=== PATIENT | female | born 1950 | race Caucasian/White ===

== ENCOUNTER → 2019-05-04 09:28 | Outpatient (CLI) | payer MEDICARE, OTHER, SELFPAY ==
[2019-05-04 10:21] LABS: Add Manual Diff / Slide Review NO; Basophils Absolute Auto 100 /uL (0-100); Basophils Percent Auto 0.8 % (0-2); Eosinophils Absolute Auto 100 /uL (0-450); Eosinophils Percent Auto 1.6 % (2-4); Hemoglobin 14.6 g/dL (12.0-16.0); Lymphocytes Absolute Auto 2100 /uL (1100-4500); Lymphocytes Percent Auto 32.4 % (25-40); Mean Corpuscular HGB Conc 33.9 % (30-36); Mean Corpuscular Volume 85.4 fL (80-100); Monocytes Absolute Auto 800 /uL (0-900); Monocytes Percent Auto 12.5 % (3-14); Neutrophils Absolute Auto 3500 /uL (1500-7000); Neutrophils Percent Auto 52.7 % (50-75); Platelet Count 243 X10^3/uL (150-400); Red Blood Cell Count 5.03 X10^6/uL (4.0-5.2); Red Cell Distribution Width 13.4 % (11.6-14.8); White Blood Cell Count 6.6 X10^3/uL (4.5-11.0)
[2019-05-04 11:02] LABS: Alanine Aminotransferase 27 IU/L (9-52); Albumin 4.2 g/dL (3.5-5.0); Albumin Globulin Ratio 1.4 (1.0-2.8); Alkaline Phosphatase 52 U/L (38-126); Aspartate Aminotransferase 30 IU/L (14-36); BUN Creatinine Ratio 22.9 (6-22); Bilirubin Total 0.6 mg/dL (0.2-1.3); Blood Urea Nitrogen 16 mg/dL (7-17); Calcium 9.6 mg/dL (8.4-10.2); Carbon Dioxide 28 mmol/L (22-32); Chloride 103 mmol/L (98-107); Cholesterol 186 mg/dL (140-199); Estimated Glomerular Filt Rate > 60.0 mL/min (>60); Globulin 2.9 g/dL (1.7-4.1); Glucose 93 mg/dL (80-110); HDL Cholesterol 57 mg/dL (40-60); HEMOLYSIS < 15 (0-50); LDL Cholesterol Calculated 120 mg/dL (<100); Sodium 141 mmol/L (137-145); Total Protein 7.1 g/dL (6.3-8.2); Triglycerides 44 mg/dL (35-150)
[2019-05-04 11:05] LABS: C-Reactive Protein Quant < 0.5 mg/dL (<1.0)
[2019-05-04 11:18] LABS: Free T3, Triiodothyronine Free 3.58 pg/mL (2.77-5.27)
[2019-05-04 11:25] LABS: Vitamin D 25 Hydroxy (D3) 79.3 ng/mL (30.0-100.0)
[2019-05-04 11:30] LABS: Cortisol AM (Before 10AM) 8.17 ug/dL (4.46-22.7)
[2019-05-04 11:31] LABS: Thyroid Stimulating Hormone 1.31 uIU/mL (0.47-4.68)
[2019-05-04 11:44] LABS: Progesterone, Total 0.87 ng/mL
[2019-05-07 17:13] LABS: EBV EBNA Antibody IgG > 600.00 U/mL (< 18.00); EBV Virus IgG Ab > 750.00 U/mL (< 18.00); EBV Virus IgM Ab < 36.00 U/mL (< 36.00)
[2019-05-08 16:28] LABS: Dehydroepiandrosterone Sulfate 60 mcg/dL (12-133)
== END ==
PROVIDERS: Visit Provider Family Medicine
DX: B27.90 Infectious mononucleosis, unspecified without complication (principal); N95.1 Menopausal and female climacteric states; F43.9 Reaction to severe stress, unspecified; E83.41 Hypermagnesemia; E03.9 Hypothyroidism, unspecified; E04.2 Nontoxic multinodular goiter; Z13.220 Encounter for screening for lipoid disorders; E55.9 Vitamin D deficiency, unspecified; Z78.0 Asymptomatic menopausal state
CPT/HCPCS: 36415; 80053; 80061; 82306; 82533; 82542; 82627; 82672; 83735; 84144; 84439; 84443; 84481; 85025; 86140; 86664; 86665

== ENCOUNTER → 2019-06-03 10:05 | Outpatient (CLI) | payer MEDICARE, OTHER, SELFPAY ==
--- NOTE | 2019-06-03 | DI.US.S_ITS ---
LIMITED ULTRASOUND OF RIGHT BREAST AND AXILLA: 06/03/2019 CLINICAL: Palpable right breast lump. Comparison is made to exam dated: 06/03/2019 mammogram - [facility]. Color flow and real-time ultrasound of the right breast upper outer quadrant and axilla regions were performed. Mcintosh scale images of the real-time examination were reviewed. There is a 1.9 x 1.7 x 1.6 cm irregular indistinct hypoechoic mass in the upper outer right breast at 10:00 position 6 cm from the nipple which demonstrates increased internal vascularity on Doppler ultrasound. This correlates with the site of the patient's reported palpable abnormality and diagnostic mammography findings. Targeted ultrasound of the left axilla demonstrates axillary lymph nodes with preserved fatty tim and hilar vascularity on Doppler ultrasound, but with cortical thickening measuring at 3 mm. IMPRESSION: HIGHLY SUGGESTIVE OF MALIGNANCY 1) 1.9 x 1.7 x 1.6 cm irregular mass in the upper outer right breast at 10:00 position 6 cm from the nipple at the site of the patient's reported palpable abnormality. This is highly suggestive of malignancy and an ultrasound guided biopsy is recommended. 2) Borderline axillary lymphadenopathy is at low suspicion for malignancy and an ultrasound guided biopsy is recommended. These results and recommendations were discussed with the patient at the time of the exam by the [facility] Radiologist Dr. Vadim Guzmán in person. These results and recommendations were also discussed with the patient's referring provider Dr. Godfrey Bush by telephone by Dr. Bright at approximately 12:30 pm on 06/03/19. This exam was interpreted at Station ID: [id number]. Electronically Signed By: Won Bright M.D. ecl/:06/03/2019 12:51:41 copy to: Kallie Nath letter sent: Biopsy Required Ultrasound BI-RADS: 5 Highly suggestive of malignancy
--- NOTE | 2019-06-03 | DI.MG.S_ITS ---
BILATERAL DIGITAL DIAGNOSTIC MAMMOGRAM 3D/2D: 06/03/2019 CLINICAL: Baseline exam. Right breast lump. Patient reports left breast excisional biopsy in 1988. No prior exams were available for comparison. The tissue of both breasts is heterogeneously dense. This may lower the sensitivity of mammography. There is an irregular spiculated mass in the superior lateral right breast immediately underlying the triangular skin marker indictating the site of the patient's palpable concern. There are associated punctate and pleomorphic calcifiations measuring approximately 3.0 cm in greatest extent (greatest anteroposteriorly). There is an approximately 1.0 cm oval circumscribed mass in the lower outer left breast near 4:00-5:00 position middle depth. There is an asymmetry with possible architectual distortion in the lateral left breast near 2:00 through 4:00 positions middle depth, near the linear scar marker from patient's reported prior left excisional biopsy. IMPRESSION: INCOMPLETE: NEEDS ADDITIONAL IMAGING EVALUATION 1) There is an irregular spiculated mass in the superior lateral right breast immediately underlying the triangular skin marker indictating the site of the patient's palpable concern. A targeted ultrasound is recommended for further evaluation. 2) There is an approximately 1.0 cm oval circumscribed mass in the lower outer left breast near 4:00-5:00 position middle depth. A targeted ultrasound is recommended for further evaluation. 3) There is an asymmetry with possible architectual distortion in the lateral left breast near 2:00 through 4:00 positions middle depth, near the linear scar marker from patient's reported prior left excisional biopsy. A targeted ultrasound is recommended for further evaluation. This exam was interpreted at Station ID: [id number]. NOTE: For mammograms, a report in lay terms will be sent to the patient. Approximately 15% of breast malignancies will not be visualized mammographically. In the management of a palpable breast mass, a negative mammogram must not discourage biopsy of a clinically suspicious lesion. Electronically Signed By: Won Bright M.D. ecl/:06/03/2019 11:40:40 ACR BI-RADS Category 0: Incomplete [id number]
--- NOTE | 2019-06-03 11:09 | DI.US.S_ITS ---
LIMITED ULTRASOUND OF LEFT BREAST AND AXILLA: 06/03/2019 CLINICAL: Patient returns today to evaluate mammographic findings in the left breast. Comparison is made to exams dated: 06/03/2019 mammogram and 06/03/2019 [facility]. Color flow and real-time ultrasound of the left breast 4-5 o'clock, and axilla regions were performed. Mcintosh scale images of the real-time examination were reviewed. There is a 1.0 x 1.0 x 0.6 cm peripherally hypoechoic and centrally hyperechoic intramammary lymph node demonstrating borderline cortical thickening of 3 mm in the left breast at 4:30 position 5 cm from the nipple. This lymph node demonstrates a preserved fatty hilum with hilar vascularity. This correlates with the mass described on comparison diagnostic mammogram of 06/03/19. There is no suspicious mass or abnormality on targeted ultrasound to correlate with the asymmetry with possible architectual distortion in the lateral left breast near 2:00 through 4:00 positions middle depth described on comparison diagnostic mammogram of 06/03/19. There is a 0.8 x 0.7 x 0.7 cm oval circumscribed anechoic cyst with increased through transmission/posterior acoustic enhancement, and no vascularity on Doppler ultrasound located in the left breast at 4:30 retroareolar position central to the nipple. There is a 2.3 x 2.1 x 0.9 cm peripherally hypoechoic and centrally hyperechoic left axillary lymph node demonstrating focal cortical thickening of 7 mm in the left axilla. This lymph node demonstrates a preserved fatty hilum with hilar vascularity. IMPRESSION: SUSPICIOUS OF MALIGNANCY 1. 2.3 x 2.1 x 0.9 cm left axillary lymph node demonstrating focal cortical thickening of 7 mm in the left axilla. This is at moderate suspicion for malignancy and an ultrasound guided biopsy is recommended. 2. 1.0 x 1.0 x 0.6 cm intramammary lymph node demonstrating borderline cortical thickening in the left breast at 4:30 position 5 cm from the nipple. This is at low suspicion for malignancy and an ultrasound guided biopsy is recommended. 3. No suspicious mass or abnormality on targeted ultrasound to correlate with the asymmetry with possible architectual distortion in the lateral left breast near 2:00 through 4:00 positions middle depth described on comparison diagnostic mammogram of 06/03/19. This area likely represents postsurgical scarring from patient's prior reported excisional biopsy. A follow-up MRI is recommended, particularly given the highly suspicious mass identified in the right breast on right breast targeted ultrasound performed concurrently. 4. 0.8 x 0.7 x 0.7 cm benign simple cyst in the left breast at 4:30 retroareolar position central to the nipple. These results and recommendations were discussed with the patient at the time of the exam by the [facility] Radiologist Dr. Vadim Guzmán in person. These results and recommendations were also discussed with the patient's referring provider Dr. Godfrey Bush by telephone by Dr. Bright at approximately 12:30 pm on 06/03/19. This exam was interpreted at Station ID: [id number]. Electronically Signed By: Won Bright M.D. ecl/:06/03/2019 13:04:01 copy to: Kallie Nath letter sent: Biopsy Required Ultrasound BI-RADS: 4b Moderate suspicion of malignancy
== END ==
PROVIDERS: Visit Provider Specialist
DX: R92.8 Other abnormal and inconclusive findings on diagnostic imaging of breast (principal); N63.11 Unspecified lump in the right breast, upper outer quadrant; N60.02 Solitary cyst of left breast; N64.89 Other specified disorders of breast; I89.9 Noninfective disorder of lymphatic vessels and lymph nodes, unspecified; Z80.3 Family history of malignant neoplasm of breast
CPT/HCPCS: 76642; 77066; 99214; G0279

== ENCOUNTER 2019-06-08 13:59 | Day surgery (SDC) | payer MEDICARE, OTHER, SELFPAY ==
[2019-06-04 14:54] VITALS: BMI 31.2
[2019-06-08] VITALS (9 sets, daily range): BP systolic 122–172; BP diastolic 52–71; PULSE 52–67; RESP 12–20; TEMP 36.4–37.3; O2SAT 95–98; BMI 30.4
--- NOTE | 2019-06-08 | PATH_ITS ---
[facility] Accession Number: [id number] . 01 Material submitted: . breast - RIGHT BREAST . 01 Clinical history: . MASS: LONG STITCH IS SUPERIOR, SHORT STITCH IS MEDIAL . 01 Diagnosis: A. Right Breast, Partial Mastectomy: Invasive (ductal) carcinoma, grade 2 of 3 ([place] combined histologic grade, total score 6/9) with the following features: 1. Tumor size (invasive component): 2.6 cm, by gross measurement (26 x 22 x 13 mm). 2. Tumor grade: a. Tubular differentiation: Moderate degree. (2/3) b. Nuclear pleomorphism: High. (3/3) c. Mitotic rate: Low. (1/3) 3. Ductal carcinoma in situ (DCIS): Present, with the following features: a. Nuclear grade: Low to intermediate. b. Necrosis: Not identified. c. Extent: Present on more than one slide corresponsding to tissue slices 6 through 12 contiguously, spanning approximately 26 mm. 4. Calcifications: Present, in association with invasive carcinoma, DCIS, atypical lobular hyperplasia, and benign breast tissue. 5. Lymphatic space invasion: Not definitively identified. 6. Resection margins: a. Invasive carcinoma: Negative; 6 mm from the closest lateral margin and more than 10 mm from the remaining margins. b. DCIS: Negative; more than 10 mm from all margins. 7. Prognostic markers (performed on this specimen): a. Estrogen receptor (SP1): Positive (95% tumor cells, Strong intensity). b. Progesterone receptor (1E2): Positive (85% tumor cells, Strong intensity). c. Her2 (4B5): Equivocal for overexpression (2+); FISH studies for Her2 gene amplification are pending and results will be reported in an addendum. 8. Additional findings: a. Skin is present and unremarkable. b. Others: Background breast parenchyma with atypical lobular hyperplasia, focal atypical ductal hyperplasia, and focal flat epithelial atypia; fibrocystic changes include focal usual ductal hyperplasia, apocrine metaplasia, and sclerosing adenosis. 9. Pathologic stage: pT2 pNX MRV 06/15/2019 0850 Local . 01 Electronically signed: . Era Martinez MD, Pathologist NPI- [id number] . 01 Gross description: . Received: In formalin, labeled right breast mass, long stitch is superior, short stitch is medial. Specimen: Right partial mastectomy. Weight: 94 grams. Measurement: 3.7 cm anterior to posterior, 5.3 cm medial to lateral, and 6.2 cm superior to inferior. Skin ellipse: Present, 6.2 x 2.7 cm. Wire: Absent. Margins: Oriented by surgeon with long superior suture and short medial suture and inked as follows: posterior=black; anterior=purple; superior=blue; inferior=green; medial=yellow; lateral=orange. Sliced: Superior to inferior into 15 slices. Lesions: One definitive lesion is identified. Description: Firm, white, with a gritty cu surface. Size: 2.6 x 2.2 x 1.3 cm. Slices involved: Slices 6 through 13. Biopsy site: Absent. Distance to margins: 0.9 cm from the skin surface, 1.3 cm from the anterior margin, 1.5 cm from the posterior margin, 2.1 cm from the superior margin, 0.7 cm from the inferior margin, 1.4 cm from the medial margin, and 1.4 cm from the lateral margin. Other: The remaining cut surfaces consist of yellow lobulated fibrofatty tissue. No additional discrete masses or lesions are grossly identified. The skin surface is grossly unremarkable. Fixation time: The specimen was placed in formalin 06/08/2019 with no time given. The approximate total fixation time is calculated to be 56 hours 30 minutes. Sections: A1-A2: Slice 1, superior end of specimen, perpendicular, entirely submitted. A3: Slice 2, guest service representative with fibrous tissue. A4-A5: Slice 3, guest service representative with fibrous tissue. A6: Slice 4, guest service representative with fibrous tissue. A7-A10: Slice 5, tissue superior to mass, no identifiable mass within this slice, slice entirely submitted. A11-A12: Slice 6, guest service representative with mass and fibrous tissue. A13, A14: Slice 7, guest service representative with mass and fibrous tissue. A15-A16: Slice 8, guest service representative with mass and fibrous tissue (grossly verified by Dr. Martinez as involved by tumor). A17-A19: Slice 9, guest service representative mass and fibrous tissue. A20-A22: Slice 10, guest service representative mass and fibrous tissue. A23-A25: Slice 11, guest service representative with mass and fibrous tissue. A26-A30: Slice 12, guest service representative mass and fibrous tissue. A31, A32: Slice 13, guest service representative with mass and fibrous tissue. A33-A36: Slice 14, tissue inferior to mass, guest service representative with fibrous tissue, no identifiable mass within this slice. A37: Slice 15, guest service representative inferior end of specimen, perpendicular, fibrous tissue is present. ([id number]) /MRV 06/15/2019 0850 Local . 01 Microscopic: . The invasive carcinoma is located within the breast parenchyma in the subcutaneous adipose tissue, without skin dermis involvement. There is no evidence of Paget disease. Atypical lobular hyperplasia is scattered and involves most the specimen (discontinuously involving 12 out of 15 slices). Perineural invasion is present. D2-40 immunostain is performed on block A13 in order to assess for lymphovascular space invasion, with appropriately staining external controls. The area of interest does not demonstrate D2-40 immunoreactivity, in support of no definitive evidence of lymphovascular invasion. . Predictive marker immunohistochemical studies are performed on block A23 with the invasive carcinoma showing the following results: . Estrogen receptor (SP1): Positive (95% tumor cells, Strong intensity). Progesterone receptor (1E2): Positive (85% tumor cells, Strong intensity). Her2 (4B5): Equivocal for overexpression (2+). . Internal controls for ER and [place] are positive. Fixation time is estimated about 56 hours and 30 minutes. The scoring criteria for breast biomarkers by immunohistochemistry is based on the ASCO/CAP guidelines (George AC et al, J Clin Oncol: 2017Feb 25;36(20):4000-0828 and Martina LÓPEZ et al, Arch Pathol Lab Med: 2009;134(6):907-22). Deparaffinized sections of formalin fixed tissue (along with appropriate positive controls) are incubated with the above antibody(s). Using the automated [place] stainer, tissue is incubated with the designated antibody which is then localized by a non-biotin, dual polymer detection system. The external controls are reviewed for appropriate reactivity and found to be adequate. Results on the target cell population are indicated above. These tests have not been validated on decalcified tissue. This test was developed and its performance characteristics determined by [employer]. It has not been cleared or approved by the U.S. Food and Drug Administration. The FDA has determined that such clearance or approval is not necessary. This test is used for clinical purposes. It should not be regarded as investigational or for research. . 01 Pathologist provided ICD-10: C50.911 . 01 CPT . 109215, M64898, 325259, 988930, 800883 Performed at: 01 [facility] [address] [place] [address], [place], [place] [id number] MD Jacinto Mar MD Phone: [phone]
[2019-06-08] MEDS: LACTATED RINGERS 1,000 ML 42 ML IV (14:43)
--- NOTE | 2019-06-08 15:42 | PM.PREOP ---
Pre-operative Note Interval Note History & Physical reviewed/Exam performed by Physician: Yes Changes to H&P: No
[2019-06-08] MEDS: CEFAZOLIN 2 GM/100 ML FROZ.PIGGY IV (16:10)
--- NOTE | 2019-06-08 16:29 | SUR.OPER ---
Supine on padded OR bed, head on pillow, arms secured on padded arm boards at <90 degrees abduction, legs uncrossed, safety belt at thigh, tape over blanket over lower legs.
[2019-06-08] MEDS: BUPIVACAINE 0.5% W/ EPI (PF) VIAL 30 ML INJ (16:36)
[2019-06-08] MEDS: OXYCODONE IR 5 MG TABLET PO (17:53)
--- NOTE | 2019-06-08 18:01 | PM.OP.1 ---
Operative Date/Time/Diagnoses Date of procedure: 06/08/19 Time of procedure: 17:15 Pre-op diagnosis: Right breast mass highly suspicious for malignancy Post-op diagnosis: same Procedure & Clinicians Procedure: Lumpectomy Same procedure as scheduled: Yes Indications: Patient is a woman who had an abnormal mammogram. She did not desire a minimally invasive procedure nor a axillary node procedure. She wanted a diagnostic procedure to remove the lump and tell her the pathology report. She was taken to the operating room. She asked that I a do a generous biopsy to try to get clear margins and if I needed to make a bigger incision I should do so. Surgeon: Godfrey Bush Click Yes if Unassisted: Yes Anesthesia Type: General Operative Notes Findings: Mass was much larger than I anticipated on physical exam once the skin was released overlying it. The patient had dimpling of the skin over the mass and thus I removed this that segment of skin because of concerned that it might be involved. Closure Type: primary Specimen(s): other (Mass) Prosthetic devices, grafts, tissues, transplants, or devices: None Estimated Blood Loss (mL): 40 Blood products transfused: none Procedure in detail: The patient is placed supine on the operating room table and underwent general LMA anesthesia. She was prepped and draped in the usual fashion. Excess occluded the inflamed area under her right breast from the operative field. She appears to have a yeast infection. A curvilinear incision was made in a crescent shape around this mass. The incisions were carried into the subcu and then using palpation I removed the mass and a generous amount of tissue around it. The mass was much larger than anticipated on palpation. The dissection was carried almost to the chest wall. The mass was labeled and submitted with the ellipse of skin intact. Hemostasis was achieved. The space was closed with interrupted 3 0 Vicryl in 2 layers. The skin was closed running 4 0 Vicryl subcuticular stitch and Steri-Strips. Dressing was applied and patient tolerated the procedure well. Complications: none Post-operative Condition: stable Disposition: PACU
[2019-06-08] MEDS: fentaNYL 100 MCG/2 ML INJ 50 MCG IV (18:03)
== END 2019-06-08 18:48 | disposition home or self-care (01) ==
PROVIDERS: PCP Family Medicine; Visit Provider Specialist
PROC: (CPT 19301; principal; 2019-06-08 15:15)
DX: C50.911 Malignant neoplasm of unspecified site of right female breast (principal); Z17.0 Estrogen receptor positive status [ER+]
CPT/HCPCS: 19301; J0690; J1100; J2250; J2405; J2704; J3010

== ENCOUNTER → 2020-09-12 15:00 | Outpatient (CLI) | payer MEDICARE, OTHER, SELFPAY ==
[2020-09-12 16:33] LABS: Add Manual Diff / Slide Review NO; Basophils Absolute Auto 0 /uL (0-100); Basophils Percent Auto 0.5 % (0-2); Eosinophils Absolute Auto 100 /uL (0-450); Eosinophils Percent Auto 1.6 % (2-4); Hematocrit 42.8 % (36-46); Lymphocytes Absolute Auto 2800 /uL (1100-4500); Lymphocytes Percent Auto 34.5 % (25-40); Mean Corpuscular HGB Conc 32.7 % (30-36); Mean Corpuscular Hemoglobin 28.4 PG (26-34); Mean Corpuscular Volume 86.7 fL (80-100); Monocytes Absolute Auto 900 /uL (0-900); Monocytes Percent Auto 10.5 % (3-14); Neutrophils Absolute Auto 4300 /uL (1500-7000); Neutrophils Percent Auto 52.9 % (50-75); Platelet Count 268 X10^3/uL (150-400); Red Blood Cell Count 4.94 X10^6/uL (4.0-5.2); Red Cell Distribution Width 13.7 % (11.6-14.8); White Blood Cell Count 8.1 X10^3/uL (4.5-11.0)
[2020-09-12 16:55] LABS: Hemoglobin A1C% w Est Avg Glu 5.3 % (4.0-6.0)
[2020-09-12 17:28] LABS: Alanine Aminotransferase 17 IU/L (<35); Albumin 4.4 g/dL (3.5-5.0); Albumin Globulin Ratio 1.4 (1.0-2.8); Alkaline Phosphatase 56 U/L (38-126); Aspartate Aminotransferase 30 IU/L (14-36); BUN Creatinine Ratio 32.8 (6-22); Bilirubin Total 0.4 mg/dL (0.2-1.3); Blood Urea Nitrogen 21 mg/dL (7-17); Carbon Dioxide 29 mmol/L (22-32); Chloride 103 mmol/L (98-107); Estimated Glomerular Filt Rate > 60.0 mL/min (>60); Globulin 3.2 g/dL (1.7-4.1); Glucose 87 mg/dL (80-110); HEMOLYSIS < 15 (0-50); Lactate Dehydrogenase 419 U/L (313-618); Potassium 3.9 mmol/L (3.4-5.1); Sodium 136 mmol/L (137-145); Total Protein 7.6 g/dL (6.3-8.2)
[2020-09-12 17:36] LABS: High Sensitivity CRP - Cardiac 1.9 mg/L (1.0-3.0)
[2020-09-12 17:37] LABS: Erythrocyte Sedimentation Rate 11 MM/HR (0-20)
[2020-09-12 17:45] LABS: Vitamin D 25 Hydroxy (D3) 66.6 ng/mL (30.0-100.0)
[2020-09-12 17:51] LABS: Free T3, Triiodothyronine Free 3.66 pg/mL (2.77-5.27)
[2020-09-12 17:59] LABS: Cancer Antigen 125 6.8 U/mL (0-35)
[2020-09-12 18:01] LABS: Estradiol, Total 27.2 pg/mL
[2020-09-12 18:03] LABS: Ferritin 145 ng/mL (11-264)
[2020-09-12 18:05] LABS: Thyroid Stimulating Hormone 0.881 uIU/mL (0.47-4.68)
[2020-09-13 04:47] LABS: Cancer Antigen 27.29 54.8 U/mL (0.0-38.6); Homocysteine 10.3 umol/L (0.0-17.2)
[2020-09-13 05:36] LABS: CA 15-3 39.9 U/mL (0.0-25.0); Cancer (Carbohydrate) Ag 19-9 9 U/mL (0-35); Dehydroepiandrosterone Sulfate 0.5 ug/dL (20.4-186.6)
[2020-09-13 08:12] LABS: Fibrinogen Activity 401 mg/dL (193-507)
[2020-09-14 15:28] LABS: Thyroid Stimulating Immunoglob < 0.10 IU/L (0.00-0.55)
== END ==
PROVIDERS: PCP Preventive Medicine Public Health & General Preventive Medicine; Referring Provider Preventive Medicine Public Health & General Preventive Medicine; Visit Provider Preventive Medicine Public Health & General Preventive Medicine
DX: C50.011 Malignant neoplasm of nipple and areola, right female breast (principal); R73.9 Hyperglycemia, unspecified; E55.9 Vitamin D deficiency, unspecified; I97.3 Postprocedural hypertension; E03.9 Hypothyroidism, unspecified; M17.10 Unilateral primary osteoarthritis, unspecified knee; E66.9 Obesity, unspecified; H04.123 Dry eye syndrome of bilateral lacrimal glands; L40.9 Psoriasis, unspecified; M54.5 Low back pain; H25.10 Age-related nuclear cataract, unspecified eye
CPT/HCPCS: 36415; 80053; 82306; 82542; 82627; 82670; 82728; 83036; 83090; 83615; 84134; 84270; 84403; 84439; 84443; 84445; 84481; 85025; 85384; 85651; 86140; 86300; 86301; 86304

== ENCOUNTER → 2020-10-08 10:53 | Outpatient (CLI) | payer MEDICARE, OTHER, SELFPAY ==
[2020-10-13 04:52] LABS: Testosterone % Fr + Wkly bound 5.1 % (3.0-18.0); Testosterone Fr+Wkly bound 1.2 ng/dL (0.0-9.5); Testosterone, Total 24.5 ng/dL (7.0-40.0)
== END ==
PROVIDERS: PCP Preventive Medicine Public Health & General Preventive Medicine; Referring Provider Preventive Medicine Public Health & General Preventive Medicine; Visit Provider Preventive Medicine Public Health & General Preventive Medicine
DX: C50.011 Malignant neoplasm of nipple and areola, right female breast (principal); I97.3 Postprocedural hypertension; M17.10 Unilateral primary osteoarthritis, unspecified knee; E66.9 Obesity, unspecified; H04.123 Dry eye syndrome of bilateral lacrimal glands; L40.9 Psoriasis, unspecified; M54.5 Low back pain; H25.10 Age-related nuclear cataract, unspecified eye
CPT/HCPCS: 36415; 82627; 84403

== ENCOUNTER → 2022-04-02 09:39 | Outpatient (CLI) | payer MEDICARE, OTHER, SELFPAY ==
--- NOTE | 2022-04-02 09:42 | DI.US.S_ITS ---
PROCEDURE: US THYROID INDICATIONS: nontoxic single thyroid nodule TECHNIQUE: Real-time scanning was performed of the thyroid gland, with image documentation. COMPARISON: None. FINDINGS: Right: Thyroid lobe measures 5.0 x 2.0 x 2.2 cm, and is homogeneous in echotexture. Left: Thyroid lobe measures 6.0 x 2.7 x 2.9 cm, and is homogenous in echotexture. Isthmus: 0.2 cm thick. Right lateral portion of the isthmus appears thin or atrophic. Nodule number: 1 Location: Right superior lateral Size: 1.6 x 1.1 x 1.0 cm. Composition: Solid Echogenicity: Isoechoic Shape: wider than tall. Margins: Smooth Echogenic foci: None Total points: 3 ACR TI-RADS category: Mildly suspicious Nodule number: 2 Location: Right medial mid thyroid Size: 1.0 x 0.6 x 0.7 cm Composition: Predominantly solid Echogenicity: Hypoechoic Shape: wider than tall. Margins: Smooth Echogenic foci: None Total points: 4 ACR TI-RADS category: Moderately suspicious Nodule number: 3 Location: Left inferior Size: 4.3 x 2.9 x 3.9 cm Composition: Predominantly solid Echogenicity: Mixed echogenicity Shape: Wider than tall Margins: Mildly lobulated Echogenic foci: Punctate Total points: 9 ACR TI-RADS category: Highly suspicious IMPRESSION: Multiple thyroid nodules as described above. Recommend fine-needle aspiration of the 4.3 cm nodule in the left thyroid and sonographic follow-up of the remaining nodules. ACR TI-RADS definitions and recommendations: TI-RADS 1 (benign): 0 points. FNA not needed. TI-RADS 2 (not suspicious): 2 points. FNA not needed. TI-RADS 3 (mildly suspicious): 3 points. * FNA if 2.5 cm or larger, follow up if 1.5 cm or larger (at 1, 3, and 5 years). TI-RADS 4 (moderately suspicious): 4-6 points. * FNA if 1.5 cm or larger, follow up if 1 cm or larger (at 1, 2, 3, and 5 years). TI-RADS 5 (highly suspicious): 7 points or more. * FNA if 1 cm or larger, follow up if 0.5 cm or larger (every year for 5 years). Dictated by: Manuelito Tena M.D. on 04/02/2022 at 12:53 Approved by: Manuelito Tena M.D. on 04/02/2022 at 13:00
--- NOTE | 2022-04-02 09:42 | DI.US.S_ITS ---
PROCEDURE: US CAROTID DOPPLER BI INDICATIONS: BRUIT TECHNIQUE: Color and pulse Doppler interrogation was performed of both carotid systems, with image documentation and velocity measurements. COMPARISON: None. FINDINGS: Stenosis calculations are based on SRU (Society of Radiologists in Ultrasound) criteria. Right side: Brachial blood pressure: 182/81 mm Hg. Common carotid artery peak systolic velocity: 70 cm/sec. Internal carotid artery peak systolic velocity: 99 cm/sec. Internal carotid artery end diastolic velocity: 24 cm/sec. External carotid artery peak systolic velocity: 77 cm/sec. ICA/CCA peak systolic ratio: 1.4 . Mcintosh scale imaging description: No significant plaque Percent internal carotid artery stenosis: Less than 50%. Vertebral artery: Flow direction is antegrade. Left side: Brachial blood pressure: 186/80 mm Hg. Common carotid artery peak systolic velocity: 88 cm/sec. Internal carotid artery peak systolic velocity: 81 cm/sec. Internal carotid artery end diastolic velocity: 28 cm/sec. External carotid artery peak systolic velocity: 74 cm/sec. ICA/CCA peak systolic ratio: 0.9 . Mcintosh scale imaging description: No significant plaque Percent internal carotid artery stenosis: No significant plaque . Vertebral artery: Flow direction is antegrade. IMPRESSION: No significant stenosis. Dictated by: Kael Razo M.D. on 04/02/2022 at 14:53 Approved by: Kael Razo M.D. on 04/02/2022 at 15:00
--- NOTE | 2022-04-02 09:45 | DI.RAD.S_ITS ---
PROCEDURE: XR HIP W PEL IF DONE VIOLA MIN 4V INDICATIONS: BILATERAL HIP PAIN TECHNIQUE: AP pelvis with lateral view(s) of the right and left hip(s). COMPARISON: None. FINDINGS: Bones: Degenerative changes of both hips consistent with osteoarthritis. No fractures or dislocations. Pelvic ring appears intact. No suspicious bony lesions. A well corticated ossicle is noted adjacent to the left greater trochanter. Soft tissues: The visualized bowel gas pattern is normal. No suspicious soft tissue calcifications. IMPRESSION: Degenerative changes of both hips consistent with mild osteoarthritis. Dictated by: Kael Razo M.D. on 04/02/2022 at 15:10 Approved by: Kael Razo M.D. on 04/02/2022 at 15:12
--- NOTE | 2022-04-02 09:45 | DI.RAD.S_ITS ---
PROCEDURE: XR ANKLE LT MIN 3V INDICATIONS: ANKLE PAIN TECHNIQUE: Three views of the ankle were acquired. COMPARISON: None. FINDINGS: Bones: No acute fracture or dislocation. Mild to moderate tibiotalar degenerative changes place plantar enthesopathy. Soft tissues: Soft tissue swelling around the ankle. There might be a joint effusion. IMPRESSION: [id number] tibiotalar degenerative changes. Possible tibiotalar joint effusion. There is also some soft tissue swelling around the ankle. Consider further evaluation with MRI if there is high concern for internal derangement. Dictated by: Evgeny Noriega M.D. on 04/02/2022 at 12:32 Approved by: Evgeny Noriega M.D. on 04/02/2022 at 12:34
--- NOTE | 2022-04-02 09:45 | DI.RAD.S_ITS ---
PROCEDURE: XR LUMBAR SPINE 2-3V INDICATIONS: BACK PAIN TECHNIQUE: 3 views of the lumbar spine were acquired. COMPARISON: None. FINDINGS: Bones: No fracture or subluxation. There is facet arthrosis in the lumbar spine especially L3-4 through L5-S1. Multilevel disc space narrowing consistent with disc disease with anterior osteophytes. Soft tissues: The aorta has atherosclerotic calcifications. Overlying bowel gas pattern is normal. No suspicious soft tissue calcifications. IMPRESSION: 1. Multilevel disc space narrowing consistent with disc disease. 2. Facet arthrosis of the lumbar spine. Dictated by: Kael Razo M.D. on 04/02/2022 at 15:12 Approved by: Kael Razo M.D. on 04/02/2022 at 15:15
--- NOTE | 2022-04-02 09:45 | DI.RAD.S_ITS ---
PROCEDURE: XR ANKLE RT MIN 3V INDICATIONS: ANKLE PAIN TECHNIQUE: Three views of the ankle were acquired. COMPARISON: None. FINDINGS: Bones: Mild degenerative changes at the tibiotalar joint. Achilles insertional, and plantar enthesopathy. Partially visualize midfoot degenerative changes are also present. Soft tissues: No tibiotalar joint effusion. Achilles tendon appears normal. IMPRESSION: Mild ankle degenerative changes. Achilles insertional and plantar enthesopathy. No acute radiographic abnormality. If there is high concern for internal derangement, consider MRI evaluation. Dictated by: Evgeny Noriega M.D. on 04/02/2022 at 12:34 Approved by: Evgeny Noriega M.D. on 04/02/2022 at 12:35
--- NOTE | 2022-04-02 09:45 | DI.RAD.S_ITS ---
PROCEDURE: XR KNEE RT 3V INDICATIONS: KNEE PAIN TECHNIQUE: 3 views of the knee were acquired. COMPARISON: [facility], CR, XR KNEE ARTHRITIC SERIES BI, 06/10/2019, 10:20. FINDINGS: Bones: No acute fractures or dislocations. No suspicious bony lesions. Generalized osteopenia. Moderate to severe joint space narrowing is seen at the medial femorotibial compartment with marginal osteophyte formation. Moderate narrowing of the anterior compartment joint space is seen. Tricompartmental marginal osteophytes. Soft tissues: Small joint effusion. No suspicious soft tissue calcifications. 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 Dictated by: Manuelito Tena M.D. on 04/02/2022 at 13:06 Approved by: Manuelito Tena M.D. on 04/02/2022 at 13:07
--- NOTE | 2022-04-02 09:45 | DI.RAD.S_ITS ---
PROCEDURE: XR KNEE LT 3V INDICATIONS: KNEE PAIN TECHNIQUE: 3 views of the knee were acquired. COMPARISON: [facility], CR, XR KNEE ARTHRITIC SERIES BI, 06/10/2019, 10:20. FINDINGS: Bones: No acute fractures or dislocations. No suspicious bony lesions. Moderate to severe joint space narrowing is seen at the medial femorotibial compartment with marginal osteophyte formation and remodeling of the articular surfaces. Moderate joint space narrowing of the patellofemoral compartment. Tricompartmental marginal osteophytes. Generalized osteopenia. Soft tissues: Small joint effusion. No suspicious soft tissue calcifications. IMPRESSION: Tricompartmental osteoarthrosis is most notable at the medial femorotibial compartment, not significantly changed when compared to the exam from 06/10/2019. Dictated by: Manuelito Tena M.D. on 04/02/2022 at 13:04 Approved by: Manuelito Tena M.D. on 04/02/2022 at 13:05
== END ==
PROVIDERS: PCP Family Medicine; Referring Provider Family Medicine; Visit Provider Family Medicine
DX: I35.0 Nonrheumatic aortic (valve) stenosis (principal); I70.0 Atherosclerosis of aorta; R09.89 Other specified symptoms and signs involving the circulatory and respiratory systems; R03.0 Elevated blood-pressure reading, without diagnosis of hypertension; E04.2 Nontoxic multinodular goiter; M47.816 Spondylosis without myelopathy or radiculopathy, lumbar region; M47.817 Spondylosis without myelopathy or radiculopathy, lumbosacral region; M17.0 Bilateral primary osteoarthritis of knee; M25.571 Pain in right ankle and joints of right foot; M77.51 Other enthesopathy of right foot and ankle; M79.89 Other specified soft tissue disorders; M25.551 Pain in right hip; M25.552 Pain in left hip; M79.609 Pain in unspecified limb
CPT/HCPCS: 72100; 73522; 73562; 73610; 76536; 93880

== ENCOUNTER → 2022-04-03 09:56 | Outpatient (CLI) | payer MEDICARE, OTHER, SELFPAY ==
[2022-04-03 11:07] LABS: Hemoglobin A1C% w Est Avg Glu 5.3 % (4.0-6.0)
[2022-04-03 11:08] LABS: Add Manual Diff / Slide Review NO; Basophils Absolute Auto 0 /uL (0-100); Basophils Percent Auto 0.5 % (0-2); Eosinophils Absolute Auto 100 /uL (0-450); Eosinophils Percent Auto 2.3 % (2-4); Hemoglobin 13.8 g/dL (12.0-16.0); Lymphocytes Absolute Auto 2100 /uL (1100-4500); Lymphocytes Percent Auto 34.1 % (25-40); Mean Corpuscular HGB Conc 34.5 % (30-36); Mean Corpuscular Hemoglobin 29.1 PG (26-34); Mean Corpuscular Volume 84.4 fL (80-100); Monocytes Absolute Auto 700 /uL (0-900); Neutrophils Absolute Auto 3100 /uL (1500-7000); Neutrophils Percent Auto 51.1 % (50-75); Platelet Count 245 X10^3/uL (150-400); Red Blood Cell Count 4.74 X10^6/uL (4.0-5.2); Red Cell Distribution Width 13.7 % (11.6-14.8); White Blood Cell Count 6.1 X10^3/uL (4.5-11.0)
[2022-04-03 11:25] LABS: Alanine Aminotransferase 17 IU/L (<35); Albumin 3.9 g/dL (3.5-5.0); Albumin Globulin Ratio 1.4 (1.0-2.8); Alkaline Phosphatase 54 U/L (38-126); Aspartate Aminotransferase 24 IU/L (14-36); BUN Creatinine Ratio 20.6 (6-22); Bilirubin Total 0.6 mg/dL (0.2-1.3); Blood Urea Nitrogen 14 mg/dL (7-17); Carbon Dioxide 28 mmol/L (22-32); Chloride 104 mmol/L (98-107); Cholesterol 221 mg/dL (140-199); Creatine Kinase 36 U/L (30-135); Estimated Glomerular Filt Rate > 60 mL/min (>60); Globulin 2.8 g/dL (1.7-4.1); Glucose 93 mg/dL (80-110); HDL Cholesterol 55 mg/dL (40-60); HEMOLYSIS < 15 (0-50); LDL Cholesterol Calculated 155 mg/dL (<100); Magnesium 2.1 mg/dL (1.6-2.3); Potassium 4.3 mmol/L (3.4-5.1); Sodium 138 mmol/L (137-145); Total Protein 6.7 g/dL (6.3-8.2); Triglycerides 54 mg/dL (35-150)
[2022-04-03 11:45] LABS: Free T3, Triiodothyronine Free 3.32 pg/mL (2.77-5.27); Free T4, Direct Thyroxine 1.27 ng/dL (0.78-2.19)
[2022-04-03 11:59] LABS: Thyroid Stimulating Hormone 0.847 uIU/mL (0.47-4.68)
[2022-04-05 18:24] LABS: Vitamin D 25 Hydroxy (D3) 86.9 ng/mL (30.0-100.0)
== END ==
PROVIDERS: PCP Family Medicine; Referring Provider Family Medicine; Visit Provider Family Medicine
DX: I10 Essential (primary) hypertension (principal); I35.0 Nonrheumatic aortic (valve) stenosis; E55.9 Vitamin D deficiency, unspecified; R03.0 Elevated blood-pressure reading, without diagnosis of hypertension; E04.1 Nontoxic single thyroid nodule; R09.89 Other specified symptoms and signs involving the circulatory and respiratory systems; I73.9 Peripheral vascular disease, unspecified; E83.41 Hypermagnesemia; E78.5 Hyperlipidemia, unspecified; Z13.1 Encounter for screening for diabetes mellitus; G60.9 Hereditary and idiopathic neuropathy, unspecified; M79.662 Pain in left lower leg
CPT/HCPCS: 36415; 80053; 80061; 82306; 82542; 82550; 83036; 83735; 84439; 84443; 84481; 85025

== ENCOUNTER → 2022-06-20 09:17 | Outpatient (CLI) | payer MEDICARE, OTHER, SELFPAY ==
--- NOTE | 2022-06-20 09:19 | DI.ECHO.S_ITS ---
[facility] +---------+ : : [address] : : : : [place] : : : : [id number] : : : : Phone: [phone]---------+ Echocardiogram Report + + :Name: APRIL MONGE V Study Date: 06/20/2022 Height: 64 in : :[facility] ReadingLocation: Weight: 176 lb : : Gender: Female BSA: 1.9 m2 : :: 1950 Age: 72 yrs BP: 147/84 mmHg: :Reason For Study: AORTIC STENOSIS : :Ordering Physician: FABIANO, : :IAIN Performed By: Rochelle Ro : :Referring: IAIN MARIO : + + Interpretation Summary The patient was in sinus bradycardia with heart rates between 49-55 bpm during the exam. Hypertensive during exam The left ventricle is normal in size. Proximal septal thickening is noted. There is mild concentric left ventricular hypertrophy. The ejection fraction is estimated to be 60-65%. Diastolic parameters suggest a relaxation abnormality of the left ventricle, consistent with probable normal filling pressures. The left atrium is mildly dilated. There is mild aortic valve sclerosis. There is mild aortic regurgitation. There is no aortic valve stenosis. There is mild tricuspid regurgitation. The right ventricular systolic pressure is estimated to be at least 29 mmHg based on an estimated right atrial pressure of 8 mm Hg. No prior study for comparison. Procedure: A two-dimensional transthoracic echocardiogram with color flow and Doppler was performed. The study quality was technically adequate. There is no prior echocardiogram noted for this patient. The patient was in sinus bradycardia with heart rates between 49-55 bpm during the exam. Hypertensive during exam. Left Ventricle: The left ventricle is normal in size. Proximal septal thickening is noted. There is mild concentric left ventricular hypertrophy. The ejection fraction is estimated to be 60-65%. Diastolic parameters suggest a relaxation abnormality of the left ventricle, consistent with probable normal filling pressures. Right Ventricle: The right ventricle is normal in size and function. Atria: The left atrium is mildly dilated. Right atrial size is normal. There is no Doppler evidence for an interatrial shunt. Mitral Valve: The mitral valve is normal in structure and function. There is trace mitral regurgitation. Aortic Valve: The aortic valve is trileaflet. The aortic valve opens well. There is mild aortic valve sclerosis. There is no aortic valve stenosis. There is mild aortic regurgitation. Tricuspid Valve: The tricuspid valve is normal in structure and function. There is mild tricuspid regurgitation. The right ventricular systolic pressure is estimated to be at least 29 mmHg based on an estimated right atrial pressure of 8 mm Hg. Pulmonic Valve: The pulmonic valve leaflets are thin and pliable; valve motion is normal. There is mild pulmonic regurgitation. Great Vessels: The aortic root is normal size. The dimensions of the ascending aorta are normal. The IVC is dilated (diameter is greater than 2.1 cm) yet it collapses greater than 50% with a sniff. This suggests a right atrial pressure of 8 mm Hg. Pericardium/ Pleura There is no pericardial effusion. There is no pleural effusion. MMode/2D Measurements & Calculations LVIDd: 4.7 cm LVOT diam: 2.1 cm LVIDs: 3.0 cm Ao root diam: 3.1 cm FS: 36.2 % asc Aorta Diam: 3.5 cm EPSS: 0.35 cm Ao Arch Diam (Prox Trans): 2.7 cm IVSd: 1.3 cm LVPWd: 1.1 cm LV neal. diameter/BSA (cm/m^2): 2.6 LV sys. diameter/BSA (cm/m^2): 1.6 LA A2 area: 18.9 cm2 RA long axis: 5.8 cm LA A4 area: 23.9 cm2 RA area: 19.8 cm2 LA length (vol): 6.1 cm RA vol: 57.5 ml LA vol: 62.6 ml RA : 31.1 ml/m2 LA vol index: 33.8 ml/m2 IVC diam: 2.1 cm RVD1 (basal): 3.3 cm RVD2 (mid): 2.5 cm TAPSE: 2.7 cm Doppler Measurements & Calculations Ao V2 max: 214.6 cm/sec LVOT Max Dixon: 102.0 cm/sec Ao V2 mean: 147.3 cm/sec LV V1 max P.2 mmHg Ao max P.4 mmHg LV V1 VTI: 25.8 cm Ao mean P.0 mmHg ARTEMIO(I,D): 1.7 cm2 Ao V2 VTI: 51.6 cm ARTEMIO(V,D): 1.6 cm2 sev ratio: 0.50 ARTEMIO indexed to BSA (cm^2/m^2): 0.92 AI P1/2t: 650.6 msec AI dec slope: 199.9 cm/sec2 MV E max dixon: 102.5 cm/sec TR max dixon: 229.1 cm/sec MV A max dixon: 118.5 cm/sec TR max P.0 mmHg MV E/A: 0.87 PA V2 max: 110.4 cm/sec Med Peak E' Dixon: 6.3 cm/sec PA V2 mean: 77.5 cm/sec E/E' med: 16.3 PA mean P.8 mmHg Lat Peak E' Dixon: 6.8 cm/sec PA pr(Accel): 39.6 mmHg E/E' lat: 15.0 E/e' average: 15.6 MV dec time: 0.26 sec SV(LVOT): 87.8 ml Reading Physician:JUNE
== END ==
PROVIDERS: PCP Family Medicine; Referring Provider Family Medicine; Visit Provider Family Medicine
DX: I08.2 Rheumatic disorders of both aortic and tricuspid valves (principal); R01.1 Cardiac murmur, unspecified
CPT/HCPCS: 93306

== ENCOUNTER → 2022-08-17 13:18 | Outpatient (CLI) | payer MEDICARE, OTHER, SELFPAY ==
--- NOTE | 2022-08-17 | DI.MRI.S_ITS ---
PROCEDURE: MR HIP RT WO CON INDICATIONS: Pain in right hip TECHNIQUE: Noncontrast coronal T1 spin echo and STIR through the bony pelvis. Coronal and axial T2 fast spin echo with fat saturation, sagittal T1 spin echo, and oblique axial T2 fast spin echo with fat saturation through the hip. COMPARISON: None. FINDINGS: Image quality: Excellent. Bones and joints: [id number] signal is seen within the right acetabulum with associated decreased signal intensity. No discrete fracture line is seen. The degree of edema is greater than expected given the degree of cartilage loss in the right hip. No adjacent soft tissue mass is seen. Similar signal abnormality is seen within the sacrum at the S1 and S2 levels with additional smaller foci at the S4 level bilaterally and within the left posterior iliac bone. Additional small focus is seen in the body of the right pubic bone. Overall, findings are suspicious for osseous metastatic disease. Proximal femurs are intact with normal in signal intensity. No osteonecrosis of the femoral heads. Tendons and ligaments: Mild distal gluteus medius and minimus tendinosis. The proximal iliotibial band appears intact. The iliopsoas tendon appears intact, without adjacent bursal fluid collections. The origin of the hamstring tendon is intact at the ischial tuberosity. The direct and indirect heads of the rectus femoris muscle origin appear intact. Labrum and cartilage: The acetabular labrum appears intact in the absence of intra-articular contrast. Cartilage surface of the femoral head appears of normal thickness. There is normal morphology of the femoral head and the acetabulum. Soft tissues: Edema is seen within the right ileus psoas muscle predominantly anterior to the right acetabulum. There is also mild intramuscular edema in the right gluteus minimus muscle and to a lesser extent the gluteus medius muscle. Similar muscular edema is seen within the short adductors. Quadratus femoris muscle demonstrates no internal edema to suggest ischiofemoral impingement. The proximal sciatic neurovascular bundle appears intact. Multiple diverticula are seen in the colon without signs of acute diverticulitis. No rectal mass is seen. IMPRESSION: 1. Areas of abnormal osseous signal are seen in the right acetabulum and superior sacrum with additional smaller lesions in the sacrum, left iliac crest, and right pubic bone. Findings are suspicious for osseous metastatic disease. Osseous lesions could be better characterized with pelvic MRI with and without contrast. Lesions do not appear to be significantly sclerotic, so a nuclear medicine bone scan may be of limited use. PET-CT could be performed to evaluate for extent of metastatic disease if indicated clinically. 2. No acute osseous fracture visualized. 3. Soft tissue edema is seen within multiple muscles surrounding the right hip, which is suspicious for multiple low-grade muscle strains. Findings were discussed with the referring physician, Dr. Nath, by telephone on 08/17/2022 at approximately 3:30 PM. Approved by: Manuelito Tena M.D. on 08/17/2022 at 15:50
== END ==
PROVIDERS: PCP Family Medicine; Referring Provider Family Medicine; Visit Provider Family Medicine
DX: M25.551 Pain in right hip (principal); M89.9 Disorder of bone, unspecified; M79.89 Other specified soft tissue disorders
CPT/HCPCS: 73721

== ENCOUNTER → 2022-09-12 12:45 | Outpatient (CLI) | payer MEDICARE, OTHER, SELFPAY ==
--- NOTE | 2022-09-12 | PATH_ITS ---
Note [facility] Accession Number: [id number] TESTS RESULT FLAG UNITS REF RANGE LAB Clinician Provided Cytology Information No. of containers..01 Other (Miscellaneous) No. of containers..08 Previously Prepared Cytology Slide Source: INFERIOR LEFT THYROID NODULE DIAGNOSIS: INFERIOR LEFT THYROID NODULE NEGATIVE FOR MALIGNANT CELLS. BETHESDA CATEGORY II. SPECIMEN CONSISTS OF BENIGN FOLLICULAR CELLS MIXTURE OF FEW MACROFOLLICLES AND MICROFOLLICLES, HEMOSIDERIN-LADEN MACROPHAGES, COLLOID, AND BLOOD. THIS PATTERN IS CONSISTENT WITH A BENIGN FOLLICULAR NODULE. Pathologist ICD10: 01 E04.1 Signed out by: Era Martinez MD, Pathologist NPI- [id number] Performed by: Corona Mendez, Electrical Estimator ([facility]) Gross description: 30 CC, PINK, CLEAR RECIEVED: IN CYTOLYT WITH 9 ALCOHOL FIXED AND 9 QUICK STAINED SLIDES ALSO 1 RNA VIAL WAS RECEIVED. /VDU 09/13/2022 1312 Local FLAG LEGEND: L-Low Normal,H-High Normal,LL-Alert Low,HH-Alert High <-Panic Low,>-Panic High,A-Abnormal,AA-Critical Abnormal Performed at: 01 =[facility] [address], [place] [address] Jacinto Mar MD, Performed at: [facility] [address], [place], [place] [id number] MD Jacinto Mar MD Phone: [phone]
--- NOTE | 2022-09-12 12:47 | DI.US.S_ITS ---
PROCEDURE: US FINE NEEDLE ASPIRATION INDICATIONS: Nontoxic single thyroid nodule TECHNIQUE: The indications, alternatives, benefits, risks, and complications of the procedure were explained to the patient. Written informed consent was obtained and placed in the chart. The area of interest was examined sonographically and a site was chosen for ultrasound guided percutaneous sampling. The skin was prepared and draped in the usual fashion, and anesthetized with 1% lidocaine infiltrated from the skin down to the lesion. Multiple passes were then performed, with contents emptied into an appropriate pathology specimen container. A bandage was applied to the area of access at completion of the study. COMPARISON: [facility], , US THYROID, 04/02/2022, 10:07. FINDINGS: Location of lesion sampled: Left lower thyroid [place]: 25 gauge hypodermic needles. Number of passes: 9 Medications: 1% lidocaine for local anaesthesia. Complications: None. IMPRESSION: Successful ultrasound-guided left thyroid nodule fine needle aspiration, with cytology results pending. Approved by: Manuelito Tena M.D. on 09/12/2022 at 16:14
== END ==
PROVIDERS: PCP Internal Medicine; Referring Provider Family Medicine; Visit Provider Family Medicine
DX: E04.2 Nontoxic multinodular goiter (principal)
CPT/HCPCS: 10005

== ENCOUNTER 2022-10-22 11:34 | Emergency (ER) | payer MEDICARE, OTHER, SELFPAY ==
[2022-10-22] VITALS (11 sets, daily range): BP systolic 123–157; BP diastolic 58–81; PULSE 56–68; RESP 14–24; O2SAT 95–96; BMI 30.9
--- NOTE | 2022-10-22 11:45 | DI.RAD.S_ITS ---
PROCEDURE: XR CHEST 1V INDICATIONS: chest pain TECHNIQUE: One view of the chest was acquired. COMPARISON: None. FINDINGS: Surgical changes and devices: None. Lungs and pleura: Lungs are clear. No pleural effusions or pneumothorax. Mediastinum: Mediastinal contours appear normal. Heart size is enlarged. Bones and chest wall: No suspicious bony lesions. Overlying soft tissues appear unremarkable. IMPRESSION: No acute pulmonary process. Dictated by: Jenae Weaver M.D. on 10/22/2022 at 12:29 Approved by: Jenae Weaver M.D. on 10/22/2022 at 12:29
[2022-10-22 12:04] LABS: Add Manual Diff / Slide Review NO; Basophils Absolute Auto 100 /uL (0-100); Basophils Percent Auto 0.7 % (0-2); Eosinophils Absolute Auto 100 /uL (0-450); Eosinophils Percent Auto 0.9 % (2-4); Hematocrit 47.2 % (36-46); Hemoglobin 16.1 g/dL (12.0-16.0); Lymphocytes Absolute Auto 2700 /uL (1100-4500); Lymphocytes Percent Auto 30.4 % (25-40); Mean Corpuscular HGB Conc 34.1 % (30-36); Mean Corpuscular Hemoglobin 28.5 PG (26-34); Mean Corpuscular Volume 83.6 fL (80-100); Monocytes Absolute Auto 900 /uL (0-900); Monocytes Percent Auto 9.9 % (3-14); Neutrophils Absolute Auto 5100 /uL (1500-7000); Neutrophils Percent Auto 58.1 % (50-75); Platelet Count 307 X10^3/uL (150-400); Red Blood Cell Count 5.65 X10^6/uL (4.0-5.2); White Blood Cell Count 8.8 X10^3/uL (4.5-11.0)
[2022-10-22 12:12] LABS: INR 1.1 (0.9-1.3); Prothrombin Time 12.4 SECONDS (10.1-12.7)
[2022-10-22 12:14] LABS: PTT Partial Thromboplastin Tim 36 SECONDS (26-36)
[2022-10-22 12:17] LABS: Alanine Aminotransferase 29 IU/L (<35); Albumin 4.8 g/dL (3.5-5.0); Albumin Globulin Ratio 1.2 (1.0-2.8); Alkaline Phosphatase 73 U/L (38-126); Aspartate Aminotransferase 39 IU/L (14-36); BUN Creatinine Ratio 31.7 (6-22); Bilirubin Total 0.9 mg/dL (0.2-1.3); Blood Urea Nitrogen 20 mg/dL (7-17); Calcium 9.5 mg/dL (8.4-10.2); Carbon Dioxide 17 mmol/L (22-32); Chloride 105 mmol/L (98-107); Creatine Kinase 45 U/L (30-135); Estimated Glomerular Filt Rate > 60 mL/min (>60); Glucose 86 mg/dL (80-110); HEMOLYSIS 32 (0-50); Lipase 238 U/L (23-300); Magnesium 1.9 mg/dL (1.6-2.3); Potassium 4.3 mmol/L (3.4-5.1); Sodium 138 mmol/L (137-145); Total Protein 8.8 g/dL (6.3-8.2)
[2022-10-22 12:28] LABS: Troponin I 0.018 ng/mL (0.01-0.034)
[2022-10-22 12:55] LABS: HDL Cholesterol 46 mg/dL (40-60); Triglycerides 208 mg/dL (35-150)
[2022-10-22 12:58] LABS: High Sensitivity CRP - Cardiac 3.3 mg/L (1.0-3.0)
[2022-10-22 13:13] LABS: Cholesterol 337 mg/dL (140-199); LDL Cholesterol Calculated 249 mg/dL (<100)
[2022-10-22 13:42] LABS: COVID19 -Nasal RAPID Negative (Negative)
--- NOTE | 2022-10-22 14:30 | ED_ITS ---
HPI - Arrhythmia/Palpitations General Chief Complaint: Arrhythmia/Palpitations Stated Complaint: in AFIB Time Seen by Provider: 10/22/22 14:28 Source: patient, family (spouse), RN notes reviewed and old records reviewed Mode of arrival: Family Vehicle Limitations: no limitations History of Present Illness HPI narrative: This is a 72-year-old with history of partial mastectomy for breast cancer who complains of over the weekend her blood pressure being erratic and hypertensive with an elevated heart rate and sensation of palpitations. Patient states throughout the weekend she did have a headache she had some chest congestion and felt very tired. She denies any fevers, no cold cough or congestion upper resp iratory, she denies chest pain or pressure no shortness of breath, no lightheadedness or passing out. No nausea or vomiting. No diarrhea constipation, no urinary symptoms such as urgency frequency or dysuria. Patient states she noticed her blood pressure was 220 systolic with a heart rate 0 108 s he went to see Artie who did a tapping to realign her energy. She states this happened twice over the weekend she saw Artie twice and it helped both times. She noticed her monitor today showed a heart rate in the 70s and said AFib. This is blood pressure cuff, wrist cuff at home. So patient presented today. She states she is felt the same palpitations a couple times here in the department. She states no daily medication she did finish amoxicillin recently she takes multiple supplements intermittently including methylene blue, D3 and K2, B12, magnesium, Co Q10 fish oil, occasional potassium supplement and had 1 tablet today she is not sure of the dose and occasional thyroid supplement but not medication. She notes she had a partial mastectomy in the past for breast cancer, she never received chemoradiation but had negative surveillance although they saw change on her sacrum hip area most recently. She is had an appendectomy and a prior lumpectomy which was negative and thyroid biopsies which were negative she notes she is been on elimination diet lately that is just protein, low carb with fruits and vegetables and she is lost 10 lb in the last week. She denies any drug allergies. No tobacco, until a week ago she was having a half glass of wine nightly, no illicit. Dr. Ntah was her primary care she is now following with Dr. Coffey. She has not seen him recently but is scheduled to see him in the future. Related Data Home Medications Medication Instructions Recorded Confirmed cholecalciferol (vitamin D3) 25 5,000 unit PO DAILY 04/21/19 08/27/22 mcg (1,000 unit) capsule coenzyme Q10 10 mg capsule 100 mg PO ONCE 04/21/19 08/27/22 multivitamin 1 cap PO DAILY 04/21/19 08/27/22 magnesium 200 mg tablet 800 mg PO DAILY 06/08/19 08/27/22 oyxjvvzz-gupfjtayg-sjcyqfoi 3.5 1 drp EYE-BOTH ONCE 05/09/22 08/27/22 mg/mL-10,000 unit/mL-0.1% eye drops Areds 2 PO DAILY 08/27/22 08/27/22 Carditone PO DAILY 08/27/22 Ligaplex II PO DAILY 08/27/22 iodine 150 mcg tablet 150 mcg PO DAILY 08/27/22 08/27/22 methylene blue 65 mg tablet 65 mg PO DAILY 08/27/22 08/27/22 omega 2-wlk-cfl-fish oil 60 mg-90 1 cap PO DAILY 08/27/22 08/27/22 mg-500 mg capsule (Fish Oil) vitamin B complex (B 1 tab PO DAILY 08/27/22 08/27/22 Complex-Vitamin B12 tablet) vitamin K2 45 mcg capsule 45 mcg PO DAILY 08/27/22 08/27/22 Allergies Allergy/AdvReac Type Severity Reaction Status Date / Time No Known Drug Allergies Allergy Unverified 10/22/22 11:45 Review of Systems Review of Systems ROS Unobtainable: All systems reviewed & are unremarkable except as noted in HPI and below Patient History Medical History Breast cancer (~2018) Chronic insomnia Degenerative joint disease of knee Dry eyes Elevated blood pressure reading without diagnosis of hypertension Foot pain Hearing loss Herpes (~1974) History of right breast cancer History of skin disorder Hypertension Iliopsoas bursitis of right hip Knee pain Knee pain, bilateral Spc-cks-izdvoctngxv corneal dystrophy Measles Mumps (~1968) Thyroid nodule (~2018) Tinnitus (~2011) Xerophthalmia Surgical History Anesthesia H/O section History of cataract removal with insertion of prosthetic lens History of partial mastectomy (~2018) Hx of appendectomy (~1967) Hx of lumpectomy (~1988) Family History Father Hypertension Heart disease Cancer Mother Melanoma Breast cancer Sister Cancer Breast cancer Grandfather Cancer Social History marital status: details: , moved from [place] 2007, 2 children household members: spouse occupational status: previously employed Smoking Status: Never smoker alcohol intake: current substance use type: does not use Smoking Status: Never smoker alcohol intake frequency: a few times a week Substance Use Type: does not use Exam Narrative Exam Narrative: GENERAL: Alert and oriented x three, female in mild distress. HEENT: Head normocephalic, atraumatic, EOMI, pupils reactive, face symmetric, moist mucous membranes NECK: Supple, full range of motion CARDIOVASCULAR: Regular rate and rhythm without murmurs, rubs or gallops. No JVD. RESPIRATORY: Breath sounds equal bilaterally, no wheezes rales or rhonchi. No tachypnea or accessory muscle use. Speaks in full sentences. ABDOMEN: Soft, nontender. Normoactive bowel sounds all 4 quadrants. No guarding or rebound, rigidity, no mass : No CVA tenderness EXTREMITIES: Normal range of motion, no clubbing or edema. Neurovascularly intact NEUROLOGICAL: Cranial nerves II through XII grossly intact. Moving all extremities SKIN: Warm, dry, no petechiae, no rashes or lesions. Initial Vital Signs Initial Vital Signs: Vital Signs Pulse Rate 68 10/22/22 13:12 Respiratory Rate 15 10/22/22 13:12 Pulse Oximetry 95 10/22/22 13:12 Course Orders Ordered: ED Orders 10/22/22 11:45 XR chest 1V Stat EKG-12 Lead Stat 10/22/22 11:55 Complete Blood Count AUTO DIFF Stat Comprehensive Metabolic Panel Stat High Sensitivity CRP - Cardiac Routine Lipase Stat Lipid Panel Routine Magnesium Stat PTT Partial Thromboplastin Champ Stat Prothrombin Time INR Stat TSH w/ Reflex to FT4 Routine Troponin & CK Cardiac Panel Stat 10/22/22 12:23 Urine Microscopic Stat 10/22/22 13:15 COVID19 -Nasal RAPID Stat 10/22/22 14:40 CA 15-3 Routine Cancer Antigen 27.29 Routine Discontinued Medications Aspirin (Aspirin 81 Mg Chew Tab) 324 mg PO NOW ONE Stop: 10/22/22 11:46 Last Admin: 10/22/22 12:10 Dose: Not Given Documented By: HEMANT Vital Signs Vital signs: Vital Signs - 8 hr 10/22/22 13:12 10/22/22 13:13 10/22/22 13:13 Pulse Rate 68 68 Respiratory Rate 15 20 Blood Pressure 142/63 H Pulse Oximetry 95 96 Oxygen Delivery Method 10/22/22 13:30 10/22/22 13:30 10/22/22 13:45 Pulse Rate 63 Respiratory Rate 20 Blood Pressure 130/60 132/58 L Pulse Oximetry 95 Oxygen Delivery Method 10/22/22 13:45 10/22/22 14:00 10/22/22 14:00 Pulse Rate 62 59 L Respiratory Rate 23 19 Blood Pressure 132/62 Pulse Oximetry 96 95 Oxygen Delivery Method 10/22/22 14:15 10/22/22 14:15 10/22/22 14:30 Pulse Rate 57 L Respiratory Rate 18 Blood Pressure 124/61 123/60 Pulse Oximetry 95 Oxygen Delivery Method 10/22/22 14:30 10/22/22 14:45 10/22/22 14:45 Pulse Rate 56 L 64 Respiratory Rate 14 19 Blood Pressure 157/68 H Pulse Oximetry 96 96 Oxygen Delivery Method 10/22/22 15:00 10/22/22 15:00 10/22/22 15:15 Pulse Rate 62 Respiratory Rate 24 Blood Pressure 153/81 H 135/61 Pulse Oximetry 96 Oxygen Delivery Method 10/22/22 15:15 10/22/22 15:30 Pulse Rate 58 L 59 L Respiratory Rate 19 Blood Pressure 135/61 Pulse Oximetry 95 95 Oxygen Delivery Method Room Air MDM - Arrhythmia/Palpitations Lab Data 10/22/22 11:55 10/22/22 11:55 Labs: Lab Results 10/22/22 10/22/22 10/22/22 Range/Units 11:55 11:55 11:55 WBC 8.8 (4.5-11.0) X10^3/uL RBC 5.65 H (4.0-5.2) X10^6/uL Hgb 16.1 H (12.0-16.0) g/dL Hct 47.2 H (36-46) % MCV 83.6 (80-100) fL MCH 28.5 (26-34) PG MCHC 34.1 (30-36) % RDW 14.0 (11.6-14.8) % Plt Count 307 (150-400) X10^3/uL Neut % (Auto) 58.1 (50-75) % Lymph % (Auto) 30.4 (25-40) % Archuleta % (Auto) 9.9 (3-14) % Eos % (Auto) 0.9 L (2-4) % Baso % (Auto) 0.7 (0-2) % Neut # (Auto) 5100 (0769-1366) /uL Lymph # (Auto) 2700 (4406-3435) /uL Archuleta # (Auto) 900 (0-900) /uL Eos # (Auto) 100 (0-450) /uL Baso # (Auto) 100 (0-100) /uL PT 12.4 (10.1-12.7) SECONDS INR 1.1 (0.9-1.3) APTT 36 (26-36) SECONDS Sodium 138 (137-145) mmol/L Potassium 4.3 (3.4-5.1) mmol/L Chloride 105 (98-107) mmol/L Carbon Dioxide 17 L (22-32) mmol/L BUN 20 H (7-17) mg/dL Creatinine 0.63 (0.52-1.04) mg/dL Estimated GFR > 60 (>60) mL/min BUN/Creatinine Ratio 31.7 H (6-22) Glucose 86 (80-110) mg/dL Calcium 9.5 (8.4-10.2) mg/dL Magnesium 1.9 (1.6-2.3) mg/dL Total Bilirubin 0.9 (0.2-1.3) mg/dL AST 39 H (14-36) IU/L ALT 29 (<35) IU/L Alkaline Phosphatase 73 (38-126) U/L Total Creatine Kinase 45 (30-135) U/L CK-MB (CK-2) TNP CK-MB (CK-2) Rel Index TNP Troponin I 0.018 (0.01-0.034) ng/mL C-React Prot High Sens (1.0-3.0) mg/L Total Protein 8.8 H (6.3-8.2) g/dL Albumin 4.8 (3.5-5.0) g/dL Globulin 4.0 (1.7-4.1) g/dL Albumin/Globulin Ratio 1.2 (1.0-2.8) Triglycerides (35-150) mg/dL Cholesterol (140-199) mg/dL LDL Cholesterol, Calc (<100) mg/dL HDL Cholesterol (40-60) mg/dL Lipase 238 (23-300) U/L TSH (0.47-4.68) uIU/mL SARS-CoV-2 (PCR) (Negative) 10/22/22 10/22/22 10/22/22 Range/Units 11:55 11:55 13:15 WBC (4.5-11.0) X10^3/uL RBC (4.0-5.2) X10^6/uL Hgb (12.0-16.0) g/dL Hct (36-46) % MCV (80-100) fL MCH (26-34) PG MCHC (30-36) % RDW (11.6-14.8) % Plt Count (150-400) X10^3/uL Neut % (Auto) (50-75) % Lymph % (Auto) (25-40) % Archuleta % (Auto) (3-14) % Eos % (Auto) (2-4) % Baso % (Auto) (0-2) % Neut # (Auto) (5868-2112) /uL Lymph # (Auto) (4976-9501) /uL Archuleta # (Auto) (0-900) /uL Eos # (Auto) (0-450) /uL Baso # (Auto) (0-100) /uL PT (10.1-12.7) SECONDS INR (0.9-1.3) APTT (26-36) SECONDS Sodium (137-145) mmol/L Potassium (3.4-5.1) mmol/L Chloride (98-107) mmol/L Carbon Dioxide (22-32) mmol/L BUN (7-17) mg/dL Creatinine (0.52-1.04) mg/dL Estimated GFR (>60) mL/min BUN/Creatinine Ratio (6-22) Glucose (80-110) mg/dL Calcium (8.4-10.2) mg/dL Magnesium (1.6-2.3) mg/dL Total Bilirubin (0.2-1.3) mg/dL AST (14-36) IU/L ALT (<35) IU/L Alkaline Phosphatase (38-126) U/L Total Creatine Kinase (30-135) U/L CK-MB (CK-2) CK-MB (CK-2) Rel Index Troponin I (0.01-0.034) ng/mL C-React Prot High Sens 3.3 H (1.0-3.0) mg/L Total Protein (6.3-8.2) g/dL Albumin (3.5-5.0) g/dL Globulin (1.7-4.1) g/dL Albumin/Globulin Ratio (1.0-2.8) Triglycerides 208 H (35-150) mg/dL Cholesterol 337 H (140-199) mg/dL LDL Cholesterol, Calc 249 H (<100) mg/dL HDL Cholesterol 46 (40-60) mg/dL Lipase (23-300) U/L TSH 0.80 (0.47-4.68) uIU/mL SARS-CoV-2 (PCR) Negative (Negative) Urine Dip Bedside Urine Glucose Negative Bedside Urine Bilirubin - Negative Bedside Urine Ketone + 15 Urine Specific Douglas 1.010 Bedside Urine Occult Blood ++ Bedside Urine pH 5.5 Bedside Urine Protein - Negative Bedside Urine Urobilinogen - Negative Bedside Urine Nitrite - Negative Bedside Urine Leukocytes - Negative Esterase Imaging Data Chest x-ray: Radiologist's Impresson: [address] [address] XRay Report Signed Patient: Kim Quevedo V MR#: [id number] : 1950 Acct:[id number] Age/Sex: 72 / F Date of Service: 10/22/22 Loc: ED Accession Number: [id number] ?? Procedure: XR chest 1V Ordering Provider: Shobha Plata D.O. PROCEDURE:? XR CHEST 1V ? INDICATIONS:? chest pain ? TECHNIQUE:? One view of the chest was acquired.? ? COMPARISON:? None. ? FINDINGS:? ? Surgical changes and devices:? None.? ? Lungs and pleura:? Lungs are clear.? No pleural effusions or pneumothorax.? ? Mediastinum:? Mediastinal contours appear normal.? Heart size is enlarged. ? Bones and chest wall:? No suspicious bony lesions.? Overlying soft tissues appear unremarkable.? ? IMPRESSION:? No acute pulmonary process. ? ? Dictated by: Jenae Weaver M.D. on 10/22/2022 at 12:29 ? ? Approved by: Jenae Weaver M.D. on 10/22/2022 at 12:29?? ECG Data Attestation: I personally reviewed and interpreted this ECG as follows: Interpretation: Sinus rhythm rate 89 TN 148 QRS 84 and QTC of 428. Nonspecific ST change. Patient is in his normal sinus rhythm on her EKG, no priors for comparison. MDM Narrative Medical decision making narrative: This is an 72-year-old female who presents with complaint of palpitations intermittently over the weekend starting on SaturdayOctober 19. Patient went to and energy worker who she states tapped her out of the episodes, she saw him twice she also noticed her blood pressure was somewhat labile during these episodes. Patient's appears to be in a sinus rhythm here, had some PACs on telemetry but no obvious atrial fibrillation. CBC, CMP, coags, LFTs, troponin show a CO2 of 17, trope is 0.018, TSH is 0.80. Patient is COVID negative with negative chest x-ray. Patient I suspect maybe having PACs, possible that she is having atrial fibrillation but not captured today. I encouraged her to return if she is having recurrent or persistent episodes so that we can capture them on EKG and to follow up for a Holter or ZIO patch as an outpatient. She is currently on an elimination diet and dropped her weight by 10 lb she likely has a component of dehydration and ketosis secondary this was encouraged to hold on her elimination diet, increase her fluid intake. She has several labs ordered by Dr. Coffey that are pending she is aware of this. We also discussed her cholesterol panel from Dr. Coffey but she is not fasting today so discussed they may need to repeat this to be more accurate in terms of her total cholesterol and triglycerides. We also discussed that I would avoid potassium supplementation unless she knows for sure that she needs it. Discharge Plan Departure Patient Disposition: Home Clinical Impression: Palpitations Instructions: DI for Palpitations Activity Restrictions/Additional Instructions: Follow-up with Dr. Coffey for recheck to have a ZIO patch Holter monitor to check for arrhythmias. You do have several labs are pending that were ordered by Dr. Coffey. I would ask if they would like your cholesterol panel rechecked as a fasting level. We did not capture any atrial fibrillation here, if you have recurrent or persistent episodes please return so we can try to catch these episodes on EKG. I would recommend that you stop your elimination diet for the short term in increase your fluid intake as this could be a contributing factor. Please return for recurrent or persistent palpitations lightheadedness or passing out, new chest pain, shortness of breath, persistent vomiting, new swelling of her extremities, passing out or other new or concerning changes. Prescriptions: No Action multivitamin capsule 1 cap PO DAILY cholecalciferol (vitamin D3) 1,000 unit capsule 5,000 unit PO DAILY coenzyme Q10 10 mg capsule 100 mg PO ONCE magnesium 200 mg Tablet 800 mg PO DAILY neomycin-polymyxin B-dexameth 3.5mg/mL-10,000 unit/mL-0.1 % drops,suspension 1 drp EYE-BOTH ONCE methylene blue 65 mg tablet 65 mg PO DAILY iodine 150 mcg tablet 150 mcg PO DAILY vitamin B complex [B Complex-Vitamin B12] Tablet 1 tab PO DAILY Carditone PO DAILY vitamin K2 45 mcg capsule 45 mcg PO DAILY omega 0-qxt-ppg-fish oil [Fish Oil] 60-90-500 mg capsule 1 cap PO DAILY Ligaplex II PO DAILY Areds 2 PO DAILY Referrals: Joni Coffey MD [Primary Care Provider] - Stand Alone Forms: Patient Portal/API
[2022-10-24 11:14] LABS: Cancer Antigen 27.29 274.8 U/mL (0.0-38.6)
== END 2022-10-22 15:34 | disposition home or self-care (01) ==
PROVIDERS: Emergency Provider Emergency Medicine; PCP Internal Medicine
DX: R00.2 Palpitations (principal); Z85.3 Personal history of malignant neoplasm of breast
CPT/HCPCS: 36415; 71045; 80053; 80061; 81003; 82550; 83690; 83735; 84443; 84484; 85025; 85610; 85730; 86140; 86300; 87635; 93005; 99283; C9803

== ENCOUNTER 2022-10-22 23:57 | Emergency (ER) | payer MEDICARE, OTHER, SELFPAY ==
[2022-10-23] VITALS (7 sets, daily range): BP systolic 137–209; BP diastolic 64–91; PULSE 61–134; RESP 13–20; TEMP 36.4; O2SAT 95–97; BMI 30.9
--- NOTE | 2022-10-23 00:24 | ED.ARRPALP ---
HPI - Arrhythmia/Palpitations General Chief Complaint: Arrhythmia/Palpitations Stated Complaint: high pulse rate Time Seen by Provider: 10/22/22 23:59 Source: patient Mode of arrival: Wheelchair Limitations: no limitations History of Present Illness HPI narrative: Patient is a 72-year-old female who was seen here in the emergency department earlier today and had an evaluation for palpitations. There was no specific arrhythmia noticed on the exam. Her EKGs are unremarkable. Labs unremarkable. States she went home. This evening she laid in bed and went to turn onto her right side when she started to feel her heart beating fast. She is not lightheaded. No shortness of breath. These with the same symptoms that she is had twice in the past. No specific diagnosis as to what this fast heart rate is. She does not take any medicines on a regular basis. Related Data Home Medications Medication Instructions Recorded Confirmed cholecalciferol (vitamin D3) 25 5,000 unit PO DAILY 04/21/19 08/27/22 mcg (1,000 unit) capsule coenzyme Q10 10 mg capsule 100 mg PO ONCE 04/21/19 08/27/22 multivitamin 1 cap PO DAILY 04/21/19 08/27/22 magnesium 200 mg tablet 800 mg PO DAILY 06/08/19 08/27/22 lprvuruz-agrjugydw-upfmzbvp 3.5 1 drp EYE-BOTH ONCE 05/09/22 08/27/22 mg/mL-10,000 unit/mL-0.1% eye drops Areds 2 PO DAILY 08/27/22 08/27/22 Carditone PO DAILY 08/27/22 Ligaplex II PO DAILY 08/27/22 iodine 150 mcg tablet 150 mcg PO DAILY 08/27/22 08/27/22 methylene blue 65 mg tablet 65 mg PO DAILY 08/27/22 08/27/22 omega 5-kjr-one-fish oil 60 mg-90 1 cap PO DAILY 08/27/22 08/27/22 mg-500 mg capsule (Fish Oil) vitamin B complex (B 1 tab PO DAILY 08/27/22 08/27/22 Complex-Vitamin B12 tablet) vitamin K2 45 mcg capsule 45 mcg PO DAILY 08/27/22 08/27/22 Previous Rx's Medication Instructions Recorded metoprolol tartrate 25 mg tablet 12.5 mg PO DAILY #30 tabs 10/23/22 rivaroxaban 20 mg tablet (Xarelto) 20 mg PO QPM #30 tabs 10/23/22 Allergies Allergy/AdvReac Type Severity Reaction Status Date / Time No Known Drug Allergies Allergy Unverified 10/22/22 11:45 Review of Systems Constitutional Constitutional: Reports system reviewed and no additional complaints, except as documented Cardiovascular Cardiovascular: Reports system reviewed and no additional complaints, except as documented Respiratory Respiratory: Reports system reviewed and no additional complaints, except as documented Integumentary/Breasts Skin/Breast: Reports system reviewed and no additional complaints, except as documented Hematologic/Lymphatic On Anticoagulants: No Patient History Medical History Breast cancer (~2018) Chronic insomnia Degenerative joint disease of knee Dry eyes Elevated blood pressure reading without diagnosis of hypertension Foot pain Hearing loss Herpes (~1974) History of right breast cancer History of skin disorder Hypertension Iliopsoas bursitis of right hip Knee pain Knee pain, bilateral Qbu-kjh-vcpikpabgit corneal dystrophy Measles Mumps (~1968) Thyroid nodule (~2018) Tinnitus (~2011) Xerophthalmia Surgical History Anesthesia H/O section History of cataract removal with insertion of prosthetic lens History of partial mastectomy (~2018) Hx of appendectomy (~1967) Hx of lumpectomy (~1988) Family History Father Hypertension Heart disease Cancer Mother Melanoma Breast cancer Sister Cancer Breast cancer Grandfather Cancer Social History marital status: details: , moved from 2007, 2 children household members: spouse occupational status: previously employed Smoking Status: Never smoker alcohol intake: current substance use type: does not use Smoking Status: Never smoker alcohol intake frequency: a few times a week Substance Use Type: does not use Exam Initial Vital Signs Initial Vital Signs: Vital Signs Temperature 97.6 F 10/23/22 00:08 Pulse Rate 120 H 10/23/22 00:08 Respiratory Rate 20 10/23/22 00:08 Blood Pressure 137/91 H 10/23/22 00:08 Pulse Oximetry 97 10/23/22 00:08 Oxygen Delivery Method Room Air 10/23/22 00:08 [facility] Head: normal to inspection and normocephalic Resp Effort & Inspection: normal respiratory effort Auscultation: clear to auscultation bilaterally Cardio Rate: tachycardic Rhythm: abnormal rhythm GI Inspection: normal to inspection Skin General: no rashes or lesions noted Neuro General: patient alert, patient awake and moves all extremities Extrem General: normal to inspection and capillary refill normal Course Orders Ordered: ED Orders 10/23/22 00:24 EKG-12 Lead Stat 10/23/22 00:44 EKG-12 Lead Stat Discontinued Medications Metoprolol Tartrate (Metoprolol Ir 25 Mg Tablet) 25 mg PO NOW ONE Stop: 10/23/22 00:25 Last Admin: 10/23/22 00:32 Dose: 25 mg Documented By: RK Vital Signs Vital signs: Vital Signs - 8 hr 10/23/22 00:08 10/23/22 00:33 10/23/22 00:35 Temperature 97.6 F Pulse Rate 120 H 131 H Respiratory Rate 20 Blood Pressure 137/91 H 209/84 H Pulse Oximetry 97 97 Oxygen Delivery Method Room Air Room Air 10/23/22 00:35 10/23/22 00:57 10/23/22 00:57 Temperature Pulse Rate 134 H 66 Respiratory Rate 13 Blood Pressure 177/79 H Pulse Oximetry 97 96 Oxygen Delivery Method Room Air Room Air 10/23/22 01:00 10/23/22 01:00 Temperature Pulse Rate 66 Respiratory Rate 20 Blood Pressure 163/76 H Pulse Oximetry 96 Oxygen Delivery Method Room Air MDM - Arrhythmia/Palpitations Medical Records Attestation: I reviewed the patient's medical records. ECG Data Attestation: I personally reviewed and interpreted this ECG as follows: Interpretation: Atrial fibrillation Ventricular rate of 135 Normal axis Normal QRS Normal QTC Nonspecific ST T wave changes Repeat EKG Sinus rhythm Ventricular rate is 73 Normal axis Normal QRS Normal QTC Nonspecific ST T wave changes MDM Narrative Medical decision making narrative: Upon arrival patient was in atrial fibrillation. We were able to see this on the EKG. This was stable AFib. This is most likely what has been happening off and on for the past several days. Patient is a candidate for cardioversion however she was given a dose of oral metoprolol. Very shortly after the dose of oral metoprolol she converted on her own to sinus rhythm. I suspect that this was not because of the medications given the timeframe of the intake of the medicine and the conversion. Had a long discussion with the patient regarding atrial fibrillation. Bundle be is to start her on a very low dose of metoprolol as her heart rate is in the low 60s here in the ER. Will also start her on Xarelto. She was given strict return precautions. We discussed the need for follow-up with her primary doctor and also Cardiology. She stated that she had an echocardiogram done approximately 3 months ago because she had a murmur. She states she was told everything was okay with the echocardiogram. She still most likely would require further evaluation with a Holter monitor. She was given return precautions. She expressed understanding and agreement. We held on repeating labs today because she had them done earlier today at the prior visit. Discharge Plan Departure Patient Disposition: Home Clinical Impression: Atrial fibrillation Instructions: DI for Atrial Fibrillation Activity Restrictions/Additional Instructions: A prescription for to medications was sent to [facility]. I recommend that you take them as directed. I also recommend that you contact your primary doctor for a follow-up. Return to the emergency department for any new or worsening symptoms. Prescriptions: New metoprolol tartrate 25 mg tablet 12.5 mg PO DAILY Qty: 30 0RF Xarelto 20 mg tablet 20 mg PO QPM Qty: 30 0RF Rx Instructions: must administer with evening meal No Action multivitamin capsule 1 cap PO DAILY cholecalciferol (vitamin D3) 1,000 unit capsule 5,000 unit PO DAILY coenzyme Q10 10 mg capsule 100 mg PO ONCE magnesium 200 mg Tablet 800 mg PO DAILY neomycin-polymyxin B-dexameth 3.5mg/mL-10,000 unit/mL-0.1 % drops,suspension 1 drp EYE-BOTH ONCE methylene blue 65 mg tablet 65 mg PO DAILY iodine 150 mcg tablet 150 mcg PO DAILY vitamin B complex [B Complex-Vitamin B12] Tablet 1 tab PO DAILY Carditone PO DAILY vitamin K2 45 mcg capsule 45 mcg PO DAILY omega 8-crd-ohs-fish oil [Fish Oil] 60-90-500 mg capsule 1 cap PO DAILY Ligaplex II PO DAILY Areds 2 PO DAILY Referrals: Joni Coffey MD [Primary Care Provider] - Stand Alone Forms: Patient Portal/API
[2022-10-23] MEDS: METOPROLOL IR 25 MG TABLET PO (00:32)
== END 2022-10-23 02:08 | disposition home or self-care (01) ==
PROVIDERS: Emergency Provider Emergency Medicine; PCP Internal Medicine
DX: I48.91 Unspecified atrial fibrillation (principal); R00.2 Palpitations; Z20.822 Contact with and (suspected) exposure to COVID-19
CPT/HCPCS: 36415; 71045; 80053; 80061; 81003; 82550; 83690; 83735; 84443; 84484; 85025; 85610; 85730; 86140; 86300; 87635; 93005; 99283; C9803

== ENCOUNTER → 2022-11-05 06:49 | Outpatient (CLI) | payer MEDICARE, OTHER, SELFPAY ==
--- NOTE | 2022-11-05 06:51 | DI.ECHO.S_ITS ---
[facility] +---------+ : : [address] [place] : : : : [id number] : : : : Phone: [phone]+ Echocardiogram Report + + :Name: APRIL MONGE V Study Date: 11/05/2022 Height: 64 in : :[facility] ReadingLocation: Weight: 175 lb : : Gender: Female BSA: 1.8 m2 : :: 1950 Age: 72 yrs BP: 118/83 mmHg: :Reason For Study: R/O PERICARDIAL DISEASE, ATRIAL : :FIBRILLATION, BREAST CANCER : :Ordering Physician: HARDIK, : :MARQUITA Performed By: Rochelle Ro : :Referring: MARQUITA DYE : + + Interpretation Summary Left ventricular global longitudinal strain average is -15.4%. The ejection fraction is estimated to be 60-65%. There has been no significant change in EFsince the previous exam. There is mild tricuspid regurgitation. There is mild aortic regurgitation. Procedure: The study quality was technically adequate. Images were not obtained from all of the standard acoustic windows due to the limited scope of the study. Comparison is made with the echocardiogram of 06/20/2022. The heart rate ranged between 59-85 bpm during the study. Left Ventricle: The left ventricle is normal in size. Proximal septal thickening is noted. Left ventricular global longitudinal strain average is - 15.4%. The ejection fraction is estimated to be 60-65%. There has been no significant change since the previous exam. Atria: The left atrial size is normal. Right atrial size is normal. Aortic Valve: The aortic valve opens well. There is mild aortic regurgitation. Tricuspid Valve: The tricuspid valve is normal in structure and function. There is mild tricuspid regurgitation. The right ventricular systolic pressure is estimated to be at least 18 mmHg based on an estimated right atrial pressure of 3 mm Hg. Pericardium/ Pleura There is no pericardial effusion. There is no pleural effusion. MMode/2D Measurements & Calculations LVIDd: 4.7 cm LVOT diam: 2.0 cm LVIDs: 3.1 cm Ao root diam: 3.1 cm FS: 34.1 % asc Aorta Diam: 3.4 cm IVSd: 0.99 cm LVPWd: 0.97 cm LV neal. diameter/BSA (cm/m^2): 2.6 LV sys. diameter/BSA (cm/m^2): 1.7 LA dimension: 3.6 cm RA long axis: 5.0 cm LA A4 area: 17.4 cm2 RA area: 13.8 cm2 LA length (vol): 5.2 cm RA vol: 32.3 ml RA : 17.5 ml/m2 IVC diam: 1.4 cm Doppler Measurements & Calculations TR max juan f: 191.0 cm/sec TR max P.6 mmHg Reading Physician:01:02 PM
== END ==
PROVIDERS: PCP Internal Medicine; Referring Provider Internal Medicine; Visit Provider Internal Medicine
DX: I08.2 Rheumatic disorders of both aortic and tricuspid valves (principal); I48.91 Unspecified atrial fibrillation; R97.8 Other abnormal tumor markers; Z85.3 Personal history of malignant neoplasm of breast
CPT/HCPCS: 93307

== ENCOUNTER → 2022-11-08 15:11 | Outpatient (CLI) | payer MEDICARE, OTHER, SELFPAY | PROVIDERS: PCP Internal Medicine; Referring Provider Internal Medicine; Visit Provider Internal Medicine | DX: I48.91 Unspecified atrial fibrillation (principal) | CPT/HCPCS: 93242 ==

== ENCOUNTER → 2023-01-18 16:46 | Outpatient (CLI) | payer MEDICARE, OTHER, SELFPAY ==
[2023-01-18 17:40] LABS: High Sensitivity CRP - Cardiac 13.1 mg/L (1.0-3.0)
[2023-01-18 18:41] LABS: Bilirubin Urine UA 2+ (NEGATIVE); Color Urine UA YELLOW; Glucose Urine UA NEGATIVE (Negative); Ketones Urine UA 3+ (NEGATIVE); Leukocyte Esterase Urine UA TRACE (NEGATIVE); Nitrite Urine UA NEGATIVE (Negative); Occult Blood Urine UA 2+ (Negative); Protein Urine UA NEGATIVE (Negative); Specific Gravity Urine UA >=1.030 (1.000-1.035); Urobilinogen Urine UA 0.2 E.U./dL (0.2)
[2023-01-18 18:42] LABS: Appearance Urine UA Slightly Cloudy
[2023-01-18 18:44] LABS: Ictotest Urine Negative (Negative)
[2023-01-18 19:39] LABS: Bacteria Urine Few (2-10); Granular Casts Urine 1-5/LPF; Hyaline Casts Urine 5-10/LPF; Mucus Urine 1+ (Negative); RBC Urine 10-30/HPF (0-5/HPF); Squamous Epithelial Cell Urine 1-5 /HPF (0-5/HPF); Transitional Epi Cells Urine 1-5/HPF (0-5/HPF); WBC Urine 10-30/HPF (0-5/HPF)
[2023-01-18 19:40] LABS: Culture Indicated Urine Specimen Cultured
[2023-01-19 08:08] LABS: EBV EBNA Antibody IgG > 600.0 U/mL (0.0-17.9); EBV Virus IgG Ab > 600.0 U/mL (0.0-17.9); EBV Virus IgM Ab < 36.0 U/mL (0.0-35.9)
[2023-01-20 11:39] LABS: Calcium 9.9 mg/dL (8.7-10.3); Parathyroid Hormone, Intact 19 pg/mL (15-65)
== END ==
PROVIDERS: PCP Internal Medicine; Referring Provider Internal Medicine; Visit Provider Internal Medicine
DX: Z20.9 Contact with and (suspected) exposure to unspecified communicable disease (principal); C50.919 Malignant neoplasm of unspecified site of unspecified female breast; E21.3 Hyperparathyroidism, unspecified; R39.9 Unspecified symptoms and signs involving the genitourinary system
CPT/HCPCS: 36415; 81001; 82310; 83970; 86140; 86644; 86664; 86665; 87086

== ENCOUNTER → 2023-02-01 12:16 | Outpatient (CLI) | payer MEDICARE, OTHER, SELFPAY ==
--- NOTE | 2023-02-01 | DI.US.S_ITS ---
PROCEDURE: US CAROTID DOPPLER BI INDICATIONS: Paroxysmal atrial fibrillation TECHNIQUE: Color and pulse Doppler interrogation was performed of both carotid systems, with image documentation and velocity measurements. COMPARISON: [facility], [place], CAROTID DOPPLER BI, 04/02/2022, 10:25. FINDINGS: Stenosis calculations are based on SRU (Society of Radiologists in Ultrasound) criteria. The flow velocities and the arterial waveforms are normal within both carotid arterial systems. The estimated degree of internal carotid artery stenosis is less than 50%. Antegrade flow is confirmed within both vertebral arteries. IMPRESSION: No hemodynamically significant stenosis is seen. Similar to prior. Dictated by: Abram Marie M.D. on 02/01/2023 at 12:32 Approved by: Abram Marie M.D. on 02/01/2023 at 12:33
== END ==
PROVIDERS: PCP Internal Medicine; Referring Provider Internal Medicine Cardiovascular Disease; Visit Provider Internal Medicine Cardiovascular Disease
DX: C50.911 Malignant neoplasm of unspecified site of right female breast (principal); I48.0 Paroxysmal atrial fibrillation; I49.3 Ventricular premature depolarization; D64.9 Anemia, unspecified; E78.01 Familial hypercholesterolemia; E03.3 Postinfectious hypothyroidism; R03.0 Elevated blood-pressure reading, without diagnosis of hypertension; R06.02 Shortness of breath; R42 Dizziness and giddiness; Z17.0 Estrogen receptor positive status [ER+]
CPT/HCPCS: 93880

== ENCOUNTER → 2023-06-03 15:17 | Outpatient (CLI) | payer MEDICARE, OTHER, SELFPAY ==
--- NOTE | 2023-06-03 15:48 | DI.MRI.S_ITS ---
PROCEDURE: MR PELVIS WO CON INDICATIONS: metastatic breast cancer TECHNIQUE: Axial 2-D FLASH in- and [id number], axial breath-hold T2 FSE, axial STIR FSE. Optional contrast may be given, followed by axial 2-D FLASH with fat saturation acquired over the lesion of concern. COMPARISON: [place], [place], [place] PET CT FUSION SKULL 2 THIGH, 09/05/2022, 8:37. FINDINGS: Image quality: Excellent. Bones: Multiple T2 intermediate, T1 hypointense lesions throughout the sacrum and pelvis. These include the central sacrum, measuring 3.4 x 5.7 x 5.5 centimeters (series 8, image 30), 1.4 centimeter in the left posterior iliac bone and 1 centimeter in the right posterior iliac bone (series 6, image 9), the right acetabulum and the right pubic bone measuring 1.2 centimeters (series 6, image 29). No soft tissue extension. No pathologic fracture. Soft tissues: Unremarkable. IMPRESSION: Osseous metastatic disease of the sacrum and pelvis, without pathologic fracture. This has progressed since PET-CT dated 09/05/2022. Dictated by: Stalin Park M.D. on 06/03/2023 at 16:54 Approved by: Stalin Park M.D. on 06/03/2023 at 16:58
[2023-06-03 17:19] LABS: Appearance Urine UA CLEAR; Bilirubin Urine UA NEGATIVE (NEGATIVE); Color Urine UA YELLOW; Glucose Urine UA NEGATIVE (Negative); Ketones Urine UA NEGATIVE (NEGATIVE); Leukocyte Esterase Urine UA TRACE (NEGATIVE); Nitrite Urine UA NEGATIVE (Negative); Occult Blood Urine UA 1+ (Negative); Protein Urine UA NEGATIVE (Negative); Specific Gravity Urine UA <=1.005 (1.000-1.035); Urobilinogen Urine UA 0.2 E.U./dL (0.2)
[2023-06-03 17:30] LABS: Bacteria Urine None Seen; Culture Indicated Urine Specimen Cultured; RBC Urine None Seen (0-5/HPF); Squamous Epithelial Cell Urine None Seen (0-5/HPF); WBC Urine 0-1/HPF (0-5/HPF)
== END ==
PROVIDERS: PCP Internal Medicine; Referring Provider Internal Medicine; Visit Provider Internal Medicine
DX: C50.919 Malignant neoplasm of unspecified site of unspecified female breast (principal); C79.51 Secondary malignant neoplasm of bone; N39.0 Urinary tract infection, site not specified
CPT/HCPCS: 72195; 81001; 87077; 87086; 87186

== ENCOUNTER → 2023-07-15 09:07 | Outpatient (CLI) | payer MEDICARE, OTHER, SELFPAY ==
[2023-07-15 10:37] LABS: BUN Creatinine Ratio 19.7 (6-22); Blood Urea Nitrogen 12 mg/dL (7-17); C-Reactive Protein Quant 2.2 mg/dL (<1.0); Cholesterol 213 mg/dL (140-199); Estimated Glomerular Filt Rate > 60 mL/min (>60)
[2023-07-16 03:38] LABS: Cancer Antigen 27.29 348.1 U/mL (0.0-38.6)
== END ==
PROVIDERS: PCP Internal Medicine; Referring Provider Internal Medicine; Visit Provider Internal Medicine
DX: Z79.01 Long term (current) use of anticoagulants (principal); C50.919 Malignant neoplasm of unspecified site of unspecified female breast
CPT/HCPCS: 36415; 82465; 82565; 84520; 86140; 86300

== ENCOUNTER → 2023-07-17 16:53 | Outpatient (CLI) | payer MEDICARE, OTHER, SELFPAY ==
[2023-07-17 17:36] LABS: Appearance Urine UA CLEAR; Bilirubin Urine UA NEGATIVE (NEGATIVE); Color Urine UA YELLOW; Glucose Urine UA NEGATIVE (Negative); Ketones Urine UA NEGATIVE (NEGATIVE); Leukocyte Esterase Urine UA NEGATIVE (NEGATIVE); Nitrite Urine UA NEGATIVE (Negative); Occult Blood Urine UA TRACE-INTACT (Negative); Protein Urine UA NEGATIVE (Negative); Specific Gravity Urine UA <=1.005 (1.000-1.035); Urobilinogen Urine UA 0.2 E.U./dL (0.2)
[2023-07-17 17:46] LABS: Bacteria Urine None Seen; Culture Indicated Urine Cult Not Indicated; RBC Urine 1-5/HPF (0-5/HPF); Squamous Epithelial Cell Urine 0-1 /HPF (0-5/HPF); WBC Urine 0-1/HPF (0-5/HPF); pH Urine UA 5.5 (4.5-8.0)
== END ==
PROVIDERS: PCP Internal Medicine; Referring Provider Internal Medicine; Visit Provider Internal Medicine
DX: N39.0 Urinary tract infection, site not specified (principal)
CPT/HCPCS: 81001

== ENCOUNTER → 2023-10-30 15:56 | Outpatient (CLI) | payer MEDICARE, OTHER, SELFPAY ==
[2023-10-30 16:47] LABS: Add Manual Diff / Slide Review NO; Basophils Absolute Auto 100 /uL (0-100); Basophils Percent Auto 1.2 % (0-2); Eosinophils Absolute Auto 200 /uL (0-450); Eosinophils Percent Auto 2.2 % (2-4); Hematocrit 39.1 % (36-46); Lymphocytes Absolute Auto 3000 /uL (1100-4500); Lymphocytes Percent Auto 31.4 % (25-40); Mean Corpuscular HGB Conc 33.1 % (30-36); Mean Corpuscular Hemoglobin 28.8 PG (26-34); Mean Corpuscular Volume 86.9 fL (80-100); Monocytes Absolute Auto 1200 /uL (0-900); Neutrophils Absolute Auto 5200 /uL (1500-7000); Neutrophils Percent Auto 53.2 % (50-75); Platelet Count 363 X10^3/uL (150-400); Red Cell Distribution Width 15.6 % (11.6-14.8); White Blood Cell Count 9.7 X10^3/uL (4.5-11.0)
[2023-10-30 17:05] LABS: Alanine Aminotransferase 29 IU/L (<35); Albumin 4.3 g/dL (3.5-5.0); Albumin Globulin Ratio 1.2 (1.0-2.8); Alkaline Phosphatase 80 U/L (38-126); Aspartate Aminotransferase 43 IU/L (14-36); BUN Creatinine Ratio 22.5 (6-22); Bilirubin Total 0.5 mg/dL (0.2-1.3); Blood Urea Nitrogen 16 mg/dL (7-17); Calcium 9.5 mg/dL (8.4-10.2); Carbon Dioxide 26 mmol/L (22-32); Chloride 102 mmol/L (98-107); Estimated Glomerular Filt Rate > 60 mL/min (>60); Globulin 3.5 g/dL (1.7-4.1); Glucose 87 mg/dL (80-110); HEMOLYSIS < 15 (0-50); Potassium 4.2 mmol/L (3.4-5.1); Sodium 137 mmol/L (137-145); Total Protein 7.8 g/dL (6.3-8.2)
[2023-10-30 17:07] LABS: Iron 82 ug/dL (37-170)
[2023-10-30 17:36] LABS: Carcinoembryonic Antigen 18.8 ng/mL (0.1-3.0)
[2023-10-30 17:40] LABS: Ferritin 230 ng/mL (11-264)
[2023-11-01 09:47] LABS: Cancer Antigen 27.29 541.4 U/mL (0.0-38.6)
== END ==
PROVIDERS: PCP Internal Medicine; Referring Provider Internal Medicine Hematology & Oncology; Visit Provider Internal Medicine Hematology & Oncology
DX: C50.812 Malignant neoplasm of overlapping sites of left female breast (principal); C50.911 Malignant neoplasm of unspecified site of right female breast
CPT/HCPCS: 36415; 80053; 82378; 82728; 83540; 85025; 86300

== ENCOUNTER → 2023-11-12 09:45 | Outpatient (CLI) | payer MEDICARE, OTHER, SELFPAY ==
--- NOTE | 2023-11-12 09:50 | DI.US.S_ITS ---
PROCEDURE: US THYROID INDICATIONS: thyroid nodules TECHNIQUE: Real-time scanning was performed of the thyroid gland, with image documentation. COMPARISON: [facility], [place], US THYROID, 04/02/2022, 10:07. FINDINGS: Thyroid: Right lobe measures 4.8 x 1.6 x 1.8 cm. Left lobe measures 6.1 x 2.4 x 2.0 cm. Isthmus is 0.3 cm thick. Echotexture is heterogeneous. Nodule number: 1 Location: Right superior, lateral Size: 1.1 x 0.8 x 1.0 previously 1.6 x 1.1 x 1.0 cm. Composition: Solid Echogenicity: Hyperechoic Shape: wider than tall. Margins: Smooth Echogenic foci: Macrocalcification Total points: 4 ACR TI-RADS category: 4 recommend follow-up Nodule number: 2 Location: Right lateral/mid Size: 1.5 x 1.0 x 1.2 centimeters, previously not well visualized. Composition: Solid Echogenicity: Hyperechoic Shape: wider than tall. Margins: Small Echogenic foci: Non Total points: 3 ACR TI-RADS category: 3 Recommend follow-up Nodule number: 3 Location: Left inferior Size: 4.6 x 3.3 x 3.2 cm (previously 4.3 x 2.9 x 3.9 centimeters) Composition: Solid Echogenicity: Isoechoic Shape: wider than tall. Margins: Lobulated Echogenic foci: Punctate Total points: 8 ACR TI-RADS category: Highly suspicious, however this lesion was previously FNA'd with benign results IMPRESSION: Thyroid lesions as noted above; # 3 lesion which would appears suspicious was already FNA'd on 09/12/22 with benign results. Recommend follow-up thyroid ultrasound in 1 year ACR TI-RADS definitions and recommendations: TI-RADS 1 (benign): 0 points. FNA not needed. TI-RADS 2 (not suspicious): 2 points. FNA not needed. TI-RADS 3 (mildly suspicious): 3 points. * FNA if 2.5 cm or larger, follow up if 1.5 cm or larger (at 1, 3, and 5 years). TI-RADS 4 (moderately suspicious): 4-6 points. * FNA if 1.5 cm or larger, follow up if 1 cm or larger (at 1, 2, 3, and 5 years). TI-RADS 5 (highly suspicious): 7 points or more. * FNA if 1 cm or larger, follow up if 0.5 cm or larger (every year for 5 years). Dictated by: Godfrey Aguirre M.D. on 11/12/2023 at 13:42 Approved by: Godfrey Aguirre M.D. on 11/12/2023 at 13:56
== END ==
PROVIDERS: PCP Internal Medicine; Referring Provider Internal Medicine; Visit Provider Internal Medicine
DX: E04.2 Nontoxic multinodular goiter (principal)
CPT/HCPCS: 76536

== ENCOUNTER → 2023-11-15 | Outpatient (CLI) | payer MEDICARE, OTHER, SELFPAY ==
--- NOTE | 2023-11-15 | DI.MRI.S_ITS ---
PROCEDURE: MR PELVIS WO CON INDICATIONS: Malignant neoplasm of unspecified site of rt//lab TECHNIQUE: Noncontrast coronal and axial T1 spin echo and STIR through the bony pelvis. COMPARISON: [facility], MR, MR PELVIS WO CON, 06/03/2023, 15:30. FINDINGS: Image quality: Excellent. Bones: Again noted is expansile T2 hyperintense and T1 hypointense lesion involving upper sacrum extending from S1 through S3 levels and currently measures up to 7.5 x 5.3 x 6.6 cm cm in size series 6, image 26, series 7, image 16 and series 4 image 13. This was previously measured at 3.4 x 5.7 x 5.5 cm in size. Lesion is seen extending to right side of the sacral ala eggs adjacent to right sacroiliac joint. Additional large expansile lesions are noted involving right lateral portion of the iliac bone extending to right acetabular roof contains internal septation, currently measures 4.6 x 4.7 x 11.5 cm in size series 4 image 22, series 5, image 13 and series 7, image 25, significantly increased compared to previous study. Smaller lesions are noted in posterior medial right iliac bone adjacent to posterior aspect of sacroiliac joint measures 1.1 cm in size series 7, image 14. 1.9 x 1.1 cm lesion is seen in left posterior to left iliac bone adjacent to sacroiliac joint series 7, image 14. 1.1 cm lesion is noted in right inferior pubic ramus near ischial tuberosity series 7, image 37. Possible additional lesion involving anterior and posterior aspect of right ischial tuberosity near right hamstring tendon origin measures 5-6 millimeter in size are also seen series 7, image 34. There is no pathologic fracture. Osteoarthritic changes are noted in bilateral hip joints more notably on the right side. Bilateral sacroiliac joint osteoarthritic changes also seen. Tendons: Low to moderate grade partial-thickness tear involving bilateral distal gluteus medius and minimus tendons at their insertions on greater trochanter is seen slightly worse on the left side. Bilateral ileus psoas muscles and tendons are within normal limits. Strain involving lateral portion of left inferior gluteus eun muscle near greater trochanter is also noted. Bilateral hamstring tendon origins are grossly intact. Soft tissues: Visualized muscles demonstrate normal bulk and internal signal. No joint effusions. No free pelvic fluid. Bladder wall thickness is normal. Genitourinary structures and bowel loops appear normal where visualized. No gross pelvic lymphadenopathy by size criteria. No pelvic free fluid. IMPRESSION: 1. Large expansile mass involving predominantly right sacrum as described above. Large lobulated and expansile mass also seen involving lateral portion of right iliac bone extending to right acetabular roof as above. Additional smaller lesions scattered in bilateral iliac bones as well as right inferior pubic ramus/right ischial tuberosity. Lesions are further increased in size compared to 06/03/2023 study consistent with bony metastasis. No pathologic fracture. 2. No pelvic free fluid. No discrete soft tissue mass or drainable fluid collection. No pelvic lymphadenopathy. 3. Left worse than right bilateral distal gluteus medius and minimus tendinosis and low-grade partial-thickness tear. Muscle strain/partial-thickness tear involving lateral portion of inferior left gluteus eun muscle. No other muscle or tendon signal abnormalities. Dictated by: Yuan Lazaro M.D. on 11/15/2023 at 13:34 Approved by: Yuan Lazaro M.D. on 11/15/2023 at 13:51
== END ==
LOC: MRI 10:57
PROVIDERS: PCP Internal Medicine; Referring Provider Internal Medicine Hematology & Oncology; Visit Provider Internal Medicine Hematology & Oncology
DX: C50.911 Malignant neoplasm of unspecified site of right female breast (principal); C79.51 Secondary malignant neoplasm of bone; S76.012A Strain of muscle, fascia and tendon of left hip, initial encounter; S76.011A Strain of muscle, fascia and tendon of right hip, initial encounter
CPT/HCPCS: 72195

== ENCOUNTER → 2024-02-05 09:31 | Outpatient (CLI) | payer MEDICARE, OTHER, SELFPAY ==
--- NOTE | 2024-02-05 | DI.MRI.S_ITS ---
PROCEDURE: MR PELVIS WO CON INDICATIONS: BREAST CANCER TECHNIQUE: Noncontrast coronal T1 spin echo and STIR; axial T1 spin echo and T2 fast spin echo and opposed phase T1 gradient echo; and sagittal T1 spin echo with fat saturation and STIR through the bony pelvis. Diffusion-weighted imaging was also performed. COMPARISON: [facility], MR, MR PELVIS WO CON, 11/15/2023, 11:06. FINDINGS: Image quality: Excellent. Bones: Mildly expansile osseous lesion in the central to right portion of the upper sacrum does not appear significantly changed in size when compared to the MRI from 11/15/2023. On the current exam, lesion measures approximately 7.5 x 5.3 cm in axial dimensions (17/7) by 6.6 cm craniocaudal (27/5), unchanged from prior measurements. Mildly expansile lesion again seen in the right iliac bone and right acetabulum, which also does not appear significantly changed in overall size and extent, although there appears to be mildly increased extraosseous extension. Osseous lesions within the lateral right iliac bone appear mildly increased in size and more confluent compared to the prior exam (16-18/7). A lesion at the medial right iliac crest now measures 1.7 cm (12/7), compared to 1.3 cm previously. Posterior medial iliac lesion (15/7) adjacent to the sacroiliac joint now demonstrates decreased T2-weighted signal without significant change in size. Left posterior iliac lesion adjacent to the sacroiliac joint does not appear significantly changed. Suspected lesion in the right pubic bone adjacent to the pubic symphysis. Small osseous lesions at the right inferior pubic ramus/ischial tuberosity have mildly increased in size, for example the largest measures 1.7 cm (37/7) compared to 1.1 cm previously. Lesion in the right proximal femur just inferior to the lesser trochanter appears unchanged. No new osseous lesion is seen. No acute trabecular bone injury or pathologic fracture. Tendons: Bilateral gluteus medius and minimus tendinosis and chronic low-grade partial tearing of the distal insertions, not significantly changed. The iliopsoas tendons appear intact. Proximal hamstring tendinosis. The straight and reflected heads of the rectus femoris muscle origin appear intact, as well as the conjoint tendon. Soft tissues: No significant enlarged inguinal or pelvic lymph nodes. No acute abnormality in the pelvis. Colonic diverticula are present. IMPRESSION: Osseous metastatic disease is again seen about the pelvis with the largest lesions located in the sacrum and right acetabulum. Overall progression of disease with increase in size of several osseous lesions, although other osseous lesions have not significantly changed in size. Suspected new mild extraosseous extension at the right iliac lesion. No pathologic fracture. Approved by: Manuelito Tena M.D. on 02/05/2024 at 15:24
== END ==
PROVIDERS: PCP Internal Medicine; Referring Provider Internal Medicine Hematology & Oncology; Visit Provider Internal Medicine Hematology & Oncology
DX: C50.911 Malignant neoplasm of unspecified site of right female breast (principal); C79.51 Secondary malignant neoplasm of bone
CPT/HCPCS: 72195

== ENCOUNTER 2024-12-11 14:30 | Outpatient (RCR) | payer MEDICARE, OTHER, SELFPAY ==
--- NOTE | 2024-11-26 15:33 | PT.OIE ---
Current Diagnoses Malignant neoplasm of unspecified site of unspecified female breast (11/26/24) Other specified disorders of bone, thigh (11/26/24) Unsteadiness on feet (11/26/24) Estrogen receptor positive status [ER+] (11/26/24) Past Medical History (Last Reviewed 10/07/24 @ 17:00 by David Huntley DO) Abnormal positron emission tomography (PET) scan Breast cancer (~2018) Chronic anticoagulation Chronic insomnia Degenerative joint disease of knee Elevated blood pressure reading without diagnosis of hypertension Elevated tumor markers Hearing loss Herpes (~1974) History of right breast cancer Iliopsoas bursitis of right hip Malignant neoplasm of breast metastatic to bone Gjo-zlz-ctozskrmbdw corneal dystrophy Measles Mumps (~1968) ALFONSO (nonalcoholic steatohepatitis) Paroxysmal atrial fibrillation Recurrent UTI Sacral dysfunction Thyroid nodule (~2018) Tinnitus (~2011) Xerophthalmia Past Surgical History (Last Reviewed 10/07/24 @ 17:00 by David Huntley DO) Anesthesia H/O section History of cataract removal with insertion of prosthetic lens History of partial mastectomy (~2018) Hx of appendectomy (~1967) Hx of lumpectomy (~1988) Visit Care Team Role Provider Type Pauline Bran DO Attending Provider Non-Staff Family Provider Primary Care Provider Referring Provider Specialty: Medical Address: [address] [place] [address], [phone] Email: Physical Therapy Initial Evaluation PT-OP-A Visit Information Start: 11/25/24 19:00 Freq: Status: Active Protocol: Document 11/26/24 11:34 [facility] (Rec: 11/26/24 13:01 [facility] [id number]) Out-Patient Physical Therapy Visit Information Visit Information Visit Type Initial Evaluation Visit Start Time 11:32 Visit Stop Time 12:15 Visit Number 1 Number of PRODUCT DEVELOPMENT SPECIALIST Visits 0 Precautions Precautions pt has metastatic breast cancer w/METs to pelvis and spine PT-OP-B Current Condition Start: 11/25/24 19:00 Freq: Status: Active Protocol: Document 11/26/24 11:34 [facility] (Rec: 11/26/24 13:01 [facility] [id number]) Current Condition History of Current Condition Current Complaints urinary frequency, B shoulder pain, back pain, weakness, difficulty in walk History of Current Condition Pt has metastatic breast cancer w/MRI of pelvis showing METS and insufficiency fx of sacrum. She has been up/down a lot in past 2 years. FEll on black ice in early 2022 when they did imaging and found the METs. She has been gradually getting stronger. In June seemed worse and went to see the youth coordinator and got some new orthotics . Has a 1/4 in leg length discrepency but it changed when did trip to [place] where she walked a lot and it changed and orthotics were switched. Thinks sacrm fx in dec when got out of an uber onto both feet hard and has difficulty w/pain after. Did have sciatica B. She isn't experiencing a lot of pain right now. Her low back fatigues a lot right now. She is wearing a SI belt. Had tendonosis on B glute min and max but that is better. Feeling very fragile. Doctor does not want her to do any weights. MD suggested bands only. Pt reports B shoulders are hurting because they are bearing more of the weight. She just got an upright walker and like that. She is doing more household activities. Pt walks a total of a 1/2 mile in the day. She wants to avoid pain. She can now bend over more now. Treatment Goals Patient/Caregiver Goals improve mobility and function and avoid pain PT-OP-E Functional Tests Start: 11/25/24 19:00 Freq: Status: Active Protocol: Document 11/26/24 11:34 [facility] (Rec: 11/26/24 13:01 [facility] [id number]) Functional Tests 2 Minute Walk Test Distance 215ft Device Used 4WW 6 Minute Walk Test Distance 3:17 min only and 353ft Device Used 4WW Five Times Sit to Stand Test Score 3x in 17 sec Comments hands pressing into knees Timed Up and Go (TUG) Score 16 sec, 16 sec, 14 sec PT-OP-G Mobility & Gait Start: 11/25/24 19:00 Freq: Status: Active Protocol: Document 11/26/24 11:34 [facility] (Rec: 11/26/24 13:01 [facility] [id number]) OP Gait Assessment Comments Gait Comments amb slight flex w/4WW, dec stance time RLE w/more fwd lean, lat leaning b PT-OP-Q Treatments Start: 11/25/24 19:00 Freq: Status: Active Protocol: Document 11/26/24 11:34 [facility] (Rec: 11/26/24 13:01 [facility] [id number]) Therapeutic Exercises Sitting Exercises hip ER Side bilateral Equipment Used L1 Reps/Minutes 12 Comments cues core -edu on TA engagement march Side bilateral Reps/Minutes 6 Comments stopped d/t pain R Standing Exercises march Standing Exercise Name at 4WW Side bilateral Reps/Minutes 10 PT-OP-T Assessment and Plan Start: 11/25/24 19:00 Freq: Status: Active Protocol: Document 11/26/24 11:34 [facility] (Rec: 11/26/24 13:01 [facility] [id number]) Physical Therapy Assessment Rehab Potential Rehabilitation Potential Good Evaluation Complexity Number of Personal Factors/Comorbidities 3 or More Number of Body Systems Impaired 4 or More Clinical Presentation at Evaluation Unstable Impairments Impairments Activity Tolerance,Balance, Functional Activities, Functional Mobility,Gait,Pain, Posture,ROM,Soft Tissue Mobility,Strength,Transfers Goals pain [facility] Goal (LTG) Pt will report at 50% decrease in B shoulder pain LTG Duration 7/3 walking Short Term Goal (STG) Pt will be able to amb 300ft in 2 min w/4WW to show improved activity tolerance STG Duration 515 [facility] Goal (LTG) Pt will be able to complete full 6 min walk test w/4WW LTG Duration 7 sit to stand Short Term Goal (STG) Pt will be able to do 5x sit to stand w/hands on thigh STG Duration 530 [facility] Goal (LTG) Pt will be able to do 5x sit to stand w/hands on thighs in 20 sec LTG Duration 7 urinary frequency Impairment pt wakes at least 4x/night to go to the bathroom [facility] Goal (LTG) pt will wake no greater than 2x/night to go to the bathroom LTG Duration 7/3 Assessment Summary Assessment Pt presents w/metastatic breast cancer w/METs to pelvis and lumbar spine w/c/o B shoulder pain, lumbar pain/ weakness and LE weakness along w/urinary frequency. She is limited in her mobility and is trying to gradually resume her mobility. She shows dec balance based on standardized testing done today along w/ overall weakness. She would benefit from skilled PT to address her deficits and improve her mobility along w/ decreased pain. Physical Therapy Plan Frequency and Duration Frequency of Treatment 2x/Week Duration of treatment (weeks) 12 Plan of Care Start Date 11/26/24 Plan of Care End Date 02/18/25 Therapeutic Interventions Therapeutic Interventions Balance Training,Gait Training ,Home Exercise Program,Manual Therapy,Neuromuscular Re- education,Patient/Caregiver Education,Self-Care/Home Management,Soft Tissue Mobilization,Taping, Therapeutic Activities, Therapeutic Exercises Modalities Biofeedback Next Visit Focus/Plan Next Note Type Treatment Note Next Visit Plan no weights only tbands, pt has metastatic cancer w/ METs to bone Band and body weight progress for strength-avoid pain and work w/pt to verbalize where she feels exercises to make sure not injuring pt
--- NOTE | 2024-11-26 15:33 | PT.OPPOC ---
Physical, Occupational & Speech Therapy At [facility] Current Diagnoses Malignant neoplasm of unspecified site of unspecified female breast (11/26/24) Other specified disorders of bone, thigh (11/26/24) Unsteadiness on feet (11/26/24) Estrogen receptor positive status [ER+] (11/26/24) Visit Care Team Role Provider Type Pauline Bran DO Attending Provider Non-Staff Family Provider Primary Care Provider Referring Provider Specialty: Medical Address: [facility] [place], [address] Email: Plan Of Care PT-OP-B Current Condition Start: 11/25/24 19:00 Freq: Status: Active Protocol: Document 11/26/24 11:34 [facility] (Rec: 11/26/24 13:01 [facility] [id number]) Current Condition History of Current Condition Current Complaints urinary frequency, B shoulder pain, back pain, weakness, difficulty in walk History of Current Condition Pt has metastatic breast cancer w/MRI of pelvis showing METS and insufficiency fx of sacrum. She has been up/down a lot in past 2 years. FEll on black ice in early 2022 when they did imaging and found the METs. She has been gradually getting stronger. In June seemed worse and went to see the conveyor operator and got some new orthotics . Has a 1/4 in leg length discrepency but it changed when did trip to [place] where she walked a lot and it changed and orthotics were switched. Thinks sacrm fx in jul when got out of an uber onto both feet hard and has difficulty w/pain after. Did have sciatica B. She isn't experiencing a lot of pain right now. Her low back fatigues a lot right now. She is wearing a SI belt. Had tendonosis on B glute min and max but that is better. Feeling very fragile. Doctor does not want her to do any weights. suggested bands only. Pt reports B shoulders are hurting because they are bearing more of the weight. She just got an upright walker and like that. She is doing more household activities. Pt walks a total of a 1/2 mile in the day. She wants to avoid pain. She can now bend over more now. Treatment Goals Patient/Caregiver Goals improve mobility and function and avoid pain PT-OP-T Assessment and Plan Start: 11/25/24 19:00 Freq: Status: Active Protocol: Document 11/26/24 11:34 [facility] (Rec: 11/26/24 13:01 [facility] [id number]) Physical Therapy Assessment Rehab Potential Rehabilitation Potential Good Evaluation Complexity Number of Personal Factors/Comorbidities 3 or More Number of Body Systems Impaired 4 or More Clinical Presentation at Evaluation Unstable Impairments Impairments Activity Tolerance,Balance, Functional Activities, Functional Mobility,Gait,Pain, Posture,ROM,Soft Tissue Mobility,Strength,Transfers Goals pain Air Route Controller Goal (LTG) Pt will report at 50% decrease in B shoulder pain LTG Duration 7/ walking Short Term Goal (STG) Pt will be able to amb 300ft in 2 min w/4WW to show improved activity tolerance STG Duration 12/31 Group Home Goal (LTG) Pt will be able to complete full 6 min walk test w/4WW LTG Duration 7 sit to stand Short Term Goal (STG) Pt will be able to do 5x sit to stand w/hands on thigh STG Duration 01/15 Air Route Controller Goal (LTG) Pt will be able to do 5x sit to stand w/hands on thighs in 20 sec LTG Duration 7 urinary frequency Impairment pt wakes at least 4x/night to go to the bathroom Air Route Controller Goal (LTG) pt will wake no greater than 2x/night to go to the bathroom LTG Duration 7 Assessment Summary Assessment Pt presents w/metastatic breast cancer w/METs to pelvis and lumbar spine w/c/o B shoulder pain, lumbar pain/ weakness and LE weakness along w/urinary frequency. She is limited in her mobility and is trying to gradually resume her mobility. She shows dec balance based on standardized testing done today along w/ overall weakness. She would benefit from skilled PT to address her deficits and improve her mobility along w/ decreased pain. Physical Therapy Plan Frequency and Duration Frequency of Treatment 2x/Week Duration of treatment (weeks) 12 Plan of Care Start Date 11/26/24 Plan of Care End Date 02/18/25 Therapeutic Interventions Therapeutic Interventions Balance Training,Gait Training ,Home Exercise Program,Manual Therapy,Neuromuscular Re- education,Patient/Caregiver Education,Self-Care/Home Management,Soft Tissue Mobilization,Taping, Therapeutic Activities, Therapeutic Exercises Modalities Biofeedback Next Visit Focus/Plan Next Note Type Treatment Note Next Visit Plan no weights only tbands, pt has metastatic cancer w/ METs to bone Band and body weight progress for strength-avoid pain and work w/pt to verbalize where she feels exercises to make sure not injuring pt Plan of Care Dates Plan of Care Start Date 11/26/24 Plan of Care End Date 02/18/25 Electronically Signed by: Sravani Pruett, PT 11/26/24 7178 If you are in agreement with this Plan of Care, please return a signed and dated copy. I have reviewed this Plan of Care and certify that the skilled therapy services above are required to meet the patient?s needs. Physician Signature Date Printed Name and Credentials Clinical Instructor Signature Printed Name and Credentials
--- NOTE | 2024-12-01 18:17 | PT.OTN ---
Current Diagnoses Malignant neoplasm of unspecified site of unspecified female breast (12/01/24) Other specified disorders of bone, thigh (12/01/24) Unsteadiness on feet (12/01/24) Estrogen receptor positive status [ER+] (12/01/24) Physical Therapy Treatment Note PT-OP-A Visit Information Start: 11/25/24 19:00 Freq: Status: Active Protocol: Document 12/01/24 17:01 AB (Rec: 12/01/24 18:14 AB Laptop) Out-Patient Physical Therapy Visit Information Visit Information Visit Type Treatment Note Visit Start Time 15:17 Visit Stop Time 16:03 Visit Number 2 Number of DINKEY ENGINE MECHANIC Visits 1 PT-OP-B Current Condition Start: 11/25/24 19:00 Freq: Status: Active Protocol: Document 11/26/24 11:34 [facility] (Rec: 11/26/24 13:01 [facility] [id number]) Current Condition History of Current Condition Current Complaints urinary frequency, B shoulder pain, back pain, weakness, difficulty in walk History of Current Condition Pt has metastatic breast cancer w/MRI of pelvis showing METS and insufficiency fx of sacrum. She has been up/down a lot in past 2 years. FEll on black ice in early 2022 when they did imaging and found the METs. She has been gradually getting stronger. In June seemed worse and went to see the production sampler and got some new orthotics . Has a 1/4 in leg length discrepency but it changed when did trip to [place] where she walked a lot and it changed and orthotics were switched. Thinks sacrm fx in jul when got out of an uber onto both feet hard and has difficulty w/pain after. Did have sciatica B. She isn't experiencing a lot of pain right now. Her low back fatigues a lot right now. She is wearing a SI belt. Had tendonosis on B glute min and max but that is better. Feeling very fragile. Doctor does not want her to do any weights. suggested bands only. Pt reports B shoulders are hurting because they are bearing more of the weight. She just got an upright walker and like that. She is doing more household activities. Pt walks a total of a 1/2 mile in the day. She wants to avoid pain. She can now bend over more now. Treatment Goals Patient/Caregiver Goals improve mobility and function and avoid pain PT-OP-C Subjective Start: 11/25/24 19:00 Freq: Status: Active Protocol: Document 12/01/24 17:01 AB (Rec: 12/01/24 18:14 AB Laptop) OP-PT Subjective Patient Comments Patient Comments Patient reports that new scan shows R femur is compromised and has to use walker at all times. ambulates with 4 wheeled walker increased trunk flexion and shoulder shrugging, sit to stand with UE's on 4 wheeled walker. PT-OP-E Functional Tests Start: 11/25/24 19:00 Freq: Status: Active Protocol: Document 11/26/24 11:34 [facility] (Rec: 11/26/24 13:01 [facility] [id number]) Functional Tests 2 Minute Walk Test Distance 215ft Device Used 4WW 6 Minute Walk Test Distance 3:17 min only and 353ft Device Used 4WW Five Times Sit to Stand Test Score 3x in 17 sec Comments hands pressing into knees Timed Up and Go (TUG) Score 16 sec, 16 sec, 14 sec PT-OP-G Mobility & Gait Start: 11/25/24 19:00 Freq: Status: Active Protocol: Document 11/26/24 11:34 [facility] (Rec: 11/26/24 13:01 [facility] [id number]) OP Gait Assessment Comments Gait Comments amb slight flex w/4WW, dec stance time RLE w/more fwd lean, lat leaning b PT-OP-Q Treatments Start: 11/25/24 19:00 Freq: Status: Active Protocol: Document 12/01/24 17:01 AB (Rec: 12/01/24 18:14 AB Laptop) Therapeutic Exercises Supine Exercises Mod restorative pose, breathing from diaphragm Supine Exercise Name HEP Reps/Minutes 4 min instruction, set up then breathing Comments verbal cues Sitting Exercises hip ER Side bilateral Equipment Used L2 Reps/Minutes 12 also one one min hold for activation HEP Comments cues core -edu on TA engagement Standing Exercises row Side bilateral Resistance level one band Reps/Minutes X 10 standing HEP X 10 seated Comments verbal and visual cues bilateral heel raise Standing Exercise Name with locked 4 wheeled walker HEP Reps/Minutes X 15 Comments Verbal cues to lower heels to floor slowly mini squat with FWW Standing Exercise Name with locked four wheeled walker HEP Side bilateral Reps/Minutes X8 Comments Verbal cues for hip hinge sit to stand Standing Exercise Name from raised mat and from chair . Reps/Minutes X5 from raised mat X 4 from webbed chair. Comments Patient ed mechanics of sit to stand Therapeutic Activity Therapeutic Activity supine to and from sit Comments Verbal cues for normal movement pattern 2 min PT-OP-T Assessment and Plan Start: 11/25/24 19:00 Freq: Status: Active Protocol: Document 12/01/24 17:01 AB (Rec: 12/01/24 18:14 AB Laptop) Physical Therapy Assessment Goals pain Employment Services Director Goal (LTG) Pt will report at 50% decrease in B shoulder pain LTG Duration 7/3 walking Short Term Goal (STG) Pt will be able to amb 300ft in 2 min w/4WW to show improved activity tolerance STG Duration 12/31 Employment Services Director Goal (LTG) Pt will be able to complete full 6 min walk test w/4WW LTG Duration 7/ sit to stand Short Term Goal (STG) Pt will be able to do 5x sit to stand w/hands on thigh STG Duration 01/15 Employment Services Director Goal (LTG) Pt will be able to do 5x sit to stand w/hands on thighs in 20 sec LTG Duration 7/3 urinary frequency Impairment pt wakes at least 4x/night to go to the bathroom Usp Goal (LTG) pt will wake no greater than 2x/night to go to the bathroom LTG Duration 7/3 Assessment Summary Assessment Patient reports no pain in LE' s, but does feel it in SI area , Good return demonstration for exercises. Mini squat added to HEP not sit to stand due to increased effort to perform task with sit to stand . Physical Therapy Plan Frequency and Duration Frequency of Treatment 2x/Week Duration of treatment (weeks) 12 Plan of Care Start Date 11/26/24 Plan of Care End Date 02/18/25 Next Visit Focus/Plan Next Note Type Treatment Note Next Visit Plan no weights only tbands, pt has metastatic cancer w/ METs to bone Band and body weight progress for strength-avoid pain and work w/pt to verbalize where she feels exercises to make sure not injuring pt
--- NOTE | 2024-12-11 17:31 | PT.OTN ---
Current Diagnoses Malignant neoplasm of unspecified site of unspecified female breast (12/11/24) Other specified disorders of bone, thigh (12/11/24) Unsteadiness on feet (12/11/24) Estrogen receptor positive status [ER+] (12/11/24) Physical Therapy Treatment Note PT-OP-A Visit Information Start: 11/25/24 19:00 Freq: Status: Active Protocol: Document 12/11/24 13:55 AB (Rec: 12/11/24 17:28 AB Laptop) Out-Patient Physical Therapy Visit Information Visit Information Visit Type Treatment Note Visit Start Time 14:33 Visit Stop Time 15:19 Visit Number 3 Number of PARAMEDIC INSTRUCTOR Visits 2 PT-OP-B Current Condition Start: 11/25/24 19:00 Freq: Status: Active Protocol: Document 11/26/24 11:34 [facility] (Rec: 11/26/24 13:01 [facility] [id number]) Current Condition History of Current Condition Current Complaints urinary frequency, B shoulder pain, back pain, weakness, difficulty in walk History of Current Condition Pt has metastatic breast cancer w/MRI of pelvis showing METS and insufficiency fx of sacrum. She has been up/down a lot in past 2 years. FEll on black ice in early 2022 when they did imaging and found the METs. She has been gradually getting stronger. In June seemed worse and went to see the microsoft dynamics ax developer and got some new orthotics . Has a 1/4 in leg length discrepency but it changed when did trip to [place] where she walked a lot and it changed and orthotics were switched. Thinks sacrm fx in jul when got out of an uber onto both feet hard and has difficulty w/pain after. Did have sciatica B. She isn't experiencing a lot of pain right now. Her low back fatigues a lot right now. She is wearing a SI belt. Had tendonosis on B glute min and max but that is better. Feeling very fragile. Doctor does not want her to do any weights. suggested bands only. Pt reports B shoulders are hurting because they are bearing more of the weight. She just got an upright walker and like that. She is doing more household activities. Pt walks a total of a 1/2 mile in the day. She wants to avoid pain. She can now bend over more now. Treatment Goals Patient/Caregiver Goals improve mobility and function and avoid pain PT-OP-C Subjective Start: 11/25/24 19:00 Freq: Status: Active Protocol: Document 12/11/24 13:55 AB (Rec: 12/11/24 17:28 AB Laptop) OP-PT Subjective Patient Comments Patient Comments Maisha and daughter into session with request to be assisted in how to get into and out of hyperbaric chamber they have in the home, and into session with pictures of set up. Patient also requesting how to get 4 wheeled walker into car. Given that she must use it when weight bearing this was not addressed this session. PT-OP-E Functional Tests Start: 11/25/24 19:00 Freq: Status: Active Protocol: Document 11/26/24 11:34 [facility] (Rec: 11/26/24 13:01 [facility] [id number]) Functional Tests 2 Minute Walk Test Distance 215ft Device Used 4WW 6 Minute Walk Test Distance 3:17 min only and 353ft Device Used 4WW Five Times Sit to Stand Test Score 3x in 17 sec Comments hands pressing into knees Timed Up and Go (TUG) Score 16 sec, 16 sec, 14 sec PT-OP-G Mobility & Gait Start: 11/25/24 19:00 Freq: Status: Active Protocol: Document 11/26/24 11:34 [facility] (Rec: 11/26/24 13:01 [facility] [id number]) OP Gait Assessment Comments Gait Comments amb slight flex w/4WW, dec stance time RLE w/more fwd lean, lat leaning b PT-OP-Q Treatments Start: 11/25/24 19:00 Freq: Status: Active Protocol: Document 12/11/24 13:55 AB (Rec: 12/11/24 17:28 AB Laptop) Therapeutic Exercises Supine Exercises chin tuck with head lift Reps/Minutes 7 sec X 5 Comments verbal cues Sitting Exercises short sit Sitting Exercise Name Modified from side plank for [place] big 3 Side bilateral Reps/Minutes 7 sec X 5 Comments verbal cues, monitored for pain seated breathing from diaphgragm Sitting Exercise Name Seated in position for breathlessness with arms on folded pillows* Reps/Minutes 4 min Comments also positioned with arms on locked walker. Pt ed rationale , VC breathing Standing Exercises counter plank bird dog Side bilateral Reps/Minutes 7 sec X 5 Comments verbal cues Therapeutic Activity Therapeutic Activity floor to sitting on high mat Name practice for getting into and out of hyperbaric chamber at home Reps/Minutes 29min Comments CGA throughout, Family ed patient must have bilateral UE support when performing this task as must use walker at all times. Verbal cues for scooting on high mat, for having UE support at all times weightbearing, and to use L LE in 1/2 knee position in to accept more body weight when standing up and right knee forward when transferring from standing to floor with UE support. CGA throughout, Daughter present. Patient and daughter advised family must assist and advised to purchase a gait belt. PT-OP-T Assessment and Plan Start: 11/25/24 19:00 Freq: Status: Active Protocol: Document 12/11/24 13:55 AB (Rec: 12/11/24 17:28 AB Laptop) Physical Therapy Assessment Goals pain School Bus Driver/Custodian Goal (LTG) Pt will report at 50% decrease in B shoulder pain LTG Duration 7/3 walking Short Term Goal (STG) Pt will be able to amb 300ft in 2 min w/4WW to show improved activity tolerance STG Duration 5/15 School Bus Driver/Custodian Goal (LTG) Pt will be able to complete full 6 min walk test w/4WW LTG Duration 7/1 sit to stand Short Term Goal (STG) Pt will be able to do 5x sit to stand w/hands on thigh STG Duration 5/30 School Bus Driver/Custodian Goal (LTG) Pt will be able to do 5x sit to stand w/hands on thighs in 20 sec LTG Duration 7/3 urinary frequency Impairment pt wakes at least 4x/night to go to the bathroom Fpc Goal (LTG) pt will wake no greater than 2x/night to go to the bathroom LTG Duration 7/3 Assessment Summary Assessment Patient reports having no pain with activities and exercise this session, reports it was not too much when questioned. Physical Therapy Plan Frequency and Duration Frequency of Treatment 2x/Week Duration of treatment (weeks) 12 Plan of Care Start Date 11/26/24 Plan of Care End Date 02/18/25 Next Visit Focus/Plan Next Note Type Treatment Note Next Visit Plan no weights only tbands, pt has metastatic cancer w/ METs to bone Band and body weight progress for strength-avoid pain and work w/pt to verbalize where she feels exercises to make sure not injuring pt
--- NOTE | 2025-01-25 11:15 | PT.OPDS ---
Current Diagnoses Malignant neoplasm of unspecified site of unspecified female breast (12/11/24) Other specified disorders of bone, thigh (12/11/24) Unsteadiness on feet (12/11/24) Estrogen receptor positive status [ER+] (12/11/24) Visit Care Team Role Provider Type Pauline Bran DO Attending Provider Non-Staff Family Provider Primary Care Provider Referring Provider Specialty: Medical Address: [address] [place] [address], [phone] Email: Visit Number Visit Number 3 Discharge Summary PT-OP-B Current Condition Start: 11/25/24 19:00 Freq: Status: Active Protocol: Document 11/26/24 11:34 [facility] (Rec: 11/26/24 13:01 [facility] [id number]) Current Condition History of Current Condition Current Complaints urinary frequency, B shoulder pain, back pain, weakness , difficulty in walk History of Current Pt has metastatic breast cancer w/MRI of pelvis showing Condition METS and insufficiency fx of sacrum. She has been up/ down a lot in past 2 years. FEll on black ice in early 2022 when they did imaging and found the METs. She has been gradually getting stronger. In June seemed worse and went to see the chemical pumper and got some new orthotics . Has a 1/4 in leg length discrepency but it changed when did trip to [place] where she walked a lot and it changed and orthotics were switched. Thinks sacrm fx in jul when got out of an uber onto both feet hard and has difficulty w/pain after. Did have sciatica B. She isn't experiencing a lot of pain right now. Her low back fatigues a lot right now. She is wearing a SI belt . Had tendonosis on B glute min and max but that is better. Feeling very fragile. Doctor does not want her to do any weights. suggested bands only. Pt reports B shoulders are hurting because they are bearing more of the weight. She just got an upright walker and like that. She is doing more household activities. Pt walks a total of a 1/2 mile in the day. She wants to avoid pain. She can now bend over more now. Treatment Goals Patient/Caregiver improve mobility and function and avoid pain Goals PT-OP-C Subjective Start: 11/25/24 19:00 Freq: Status: Active Protocol: Document 12/11/24 13:55 AB (Rec: 12/11/24 17:28 AB Laptop) OP-PT Subjective Patient Comments Patient Comments Maisha and daughter into session with request to be assisted in how to get into and out of hyperbaric chamber they have in the home, and into session with pictures of set up. Patient also requesting how to get 4 wheeled walker into car. Given that she must use it when weight bearing this was not addressed this session . PT-OP-E Functional Tests Start: 11/25/24 19:00 Freq: Status: Active Protocol: Document 11/26/24 11:34 [facility] (Rec: 11/26/24 13:01 [id number] Functional Tests 2 Minute Walk Test Distance 215ft Device Used 4WW 6 Minute Walk Test Distance 3:17 min only and 353ft Device Used 4WW Five Times Sit to Stand Test Score 3x in 17 sec Comments hands pressing into knees Timed Up and Go (TUG) Score 16 sec, 16 sec, 14 sec PT-OP-G Mobility & Gait Start: 11/25/24 19:00 Freq: Status: Active Protocol: Document 11/26/24 11:34 [facility] (Rec: 11/26/24 13:01 [facility] [id number]) OP Gait Assessment Comments Gait Comments amb slight flex w/4WW, dec stance time RLE w/more fwd lean, lat leaning b PT-OP-T Assessment and Plan Start: 11/25/24 19:00 Freq: Status: Active Protocol: Document 01/25/25 11:10 [facility] (Rec: 01/25/25 11:14 [facility] [id number]) Physical Therapy Assessment Goals pain Second Chef Goal (LTG) Pt will report at 50% decrease in B shoulder pain LTG Duration 7/3 walking Short Term Goal (STG Pt will be able to amb 300ft in 2 min w/4WW to show ) improved activity tolerance STG Duration 5/15 Longterm Goal (LTG) Pt will be able to complete full 6 min walk test w/4WW LTG Duration 7/1 sit to stand Short Term Goal (STG Pt will be able to do 5x sit to stand w/hands on thigh ) STG Duration 530 Longterm Goal (LTG) Pt will be able to do 5x sit to stand w/hands on thighs in 20 sec LTG Duration 02/18 urinary frequency Impairment pt wakes at least 4x/night to go to the bathroom Second Chef Goal (LTG) pt will wake no greater than 2x/night to go to the bathroom LTG Duration 7 Assessment Summary Assessment Pt cancelled last few appointments and did not reschedule. Has not been seen for 6 weeks. DC d/t no longer attending PT. Physical Therapy Plan Discharge Physical Therapy Discharge Reasons No Longer Attending PT
== END 2025-01-29 12:49 | disposition home or self-care (01) ==
LOC: PHYS 14:30
PROVIDERS: Family Provider Family Medicine; PCP Family Medicine; Referring Provider Family Medicine; Visit Provider Family Medicine
DX: M89.8X5 Other specified disorders of bone, thigh (principal); R26.81 Unsteadiness on feet; C50.919 Malignant neoplasm of unspecified site of unspecified female breast; Z17.0 Estrogen receptor positive status [ER+]
CPT/HCPCS: 97110; 97163; 97530